=== PATIENT | female | born 1960 | race Caucasian/White ===

== ENCOUNTER 2019-12-04 12:57 | Outpatient (CLI) | payer BC, SELFPAY ==
--- NOTE | ~2019-12-04 | MM_ITS ---
EXAMINATION: MM diagnostic kaleb RT w teja HISTORY: Follow-up right breast calcifications TECHNIQUE: Additional 3-D tomosynthesis images of the right breast were performed and synthetic 2-D i mages were generated. CAD analysis was submitted and interpreted. COMPARISON: Comparison to multiple prior studies sequentially, with oldest reviewed study dated 07/24. FINDINGS: Breast composed of scattered areas of fibroglandular density. No significant change to the right breast compared with prior study. Benign-appearing right breast calcifications are not signific antly changed. Asymmetries are stable. IMPRESSION: 1. Stable right mammogram. Probable benign right breast calcifications. 2. Recommend 6 month follow-up diagnostic bilateral mammogram. BI-RADS category 3, probably benign findings. Reviewed, dictated and finalized at location A.
== END 2019-12-04 12:58 | disposition home or self-care (01) ==
PROVIDERS: PCP Internal Medicine; Visit Provider Obstetrics & Gynecology
DX: R92.2 Inconclusive mammogram (principal)
CPT/HCPCS: 77061; 77065; G0279

== ENCOUNTER 2020-02-01 14:18 | Outpatient (CLI) | payer BC, SELFPAY ==
--- NOTE | ~2020-02-01 | XR_ITS ---
XR sternoclavicular joint BI 02/01/2020 15:09 Indication: Sternoclavicular pain. Procedure: Three-view sternoclavicular joints Comparison: No prior studies for comparison. Findings: No fracture, subluxation or dislocation. There is anatomic alignment. No significant erosiv e changes seen. Soft tissues are unremarkable. Impression: 1: No significant bone or joint abnormality. Reviewed, dictated and finalized at location A. Impression: 1: No significant bone or joint abnormality.
--- NOTE | ~2020-02-01 | US_ITS ---
EXAMINATION: US thyroid DATE: 02/01/2020 15:06 INDICATION: Nontoxic single thyroid nodule. TECHNIQUE: Multiple ultrasound images of the thyroid were obtained. COMPARISON: Ultrasound 01/26/2019 FINDINGS: The right thyroid lobe measures 4.8 x 1.7 x 1.9 cm. The left thyroid lobe measures 3.5 x 1.5 x 1.7 c m. The thyroid demonstrates heterogeneous echogenicity. Vascularity is normal. In the right thyroid lobe, there is an 8 mm solid, hypoechoic, [id number]-[id number] nodule with smooth margin without echogenic foci (TI-RADS TR4). IMPRESSION: 1. Small thyroid nodule, likely not clinically significant. No follow-up is needed. 2. Heterogeneous thyroid, likely chronic lymphocytic (Tomas) thyroiditis. Reviewed, dictated and finalized at location B. IMPRESSION: 1. Small thyroid nodule, likely not clinically significant. No follow-up is nee ded. 2. Heterogeneous thyroid, likely chronic lymphocytic (Tomas) thyroiditis.
== END 2020-02-01 14:19 | disposition home or self-care (01) ==
LOC: ANHIMG 14:25
PROVIDERS: PCP Internal Medicine; Visit Provider Physician Assistant
DX: M25.519 Pain in unspecified shoulder (principal); E04.1 Nontoxic single thyroid nodule
CPT/HCPCS: 71130; 76536

== ENCOUNTER 2020-08-13 09:21 | Outpatient (CLI) | payer BC, SELFPAY ==
--- NOTE | ~2020-08-13 | MM_ITS ---
EXAMINATION: MM screening kaleb BI w teja HISTORY: Screening mammogram TECHNIQUE: Craniocaudal and mediolateral oblique 3-D tomosynthesis images were obtained and synthetic 2-D images were generated. CAD analysis was submitted and interpreted. COMPARISON: 12/04/2019 and 03/24/2019 diagnostic right digital mammogram examinations 03/20/2019, 03/08/2018 bilateral digital screening mammogram examinations BREAST PARENCHYMAL COMPOSITION: There are scattered areas of fibroglandular density. FINDINGS: There are scattered numerous bilateral benign calcifications. There is no evidence of suspi cious mass, calcification, or architectural distortion to suggest malignancy in either breast. There has been no suspicious interval change. IMPRESSION: 1. No mammographic evidence of malignancy. 2. Recommend routine screening mammography in one year. BI-RADS Category 2: Benign finding(s). 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
== END 2020-08-13 09:22 | disposition home or self-care (01) ==
PROVIDERS: PCP Physician Assistant; Visit Provider Obstetrics & Gynecology
DX: Z12.31 Encounter for screening mammogram for malignant neoplasm of breast (principal)
CPT/HCPCS: 77063; 77067

== ENCOUNTER 2021-09-10 16:14 | Outpatient (CLI) | payer BC, SELFPAY ==
--- NOTE | ~2021-09-10 | MM_ITS ---
EXAMINATION: MM screening kaleb BI w teja HISTORY: Screening TECHNIQUE: Craniocaudal and mediolateral oblique 3-D tomosynthesis images were obtained and synthetic 2-D images were generated. CAD analysis was submitted and interpreted. COMPARISON: Comparison to multiple prior studies sequentially, with oldest reviewed study dated 07/24. BREAST PARENCHYMAL COMPOSITION: There are scattered areas of fibroglandular density. FINDINGS: No significant change to benign-appearing bilateral breast calcifications. There is no evid ence of suspicious mass, calcification, or architectural distortion to suggest malignancy in either b reast. There has been no suspicious interval change. IMPRESSION: 1. No mammographic evidence of malignancy. 2. Recommend routine screening mammography in one year. BI-RADS Category 2: Benign finding(s). Reviewed, dictated and finalized at location A.
== END 2021-09-10 16:15 | disposition home or self-care (01) ==
LOC: ANHIMG 16:16
PROVIDERS: PCP Physician Assistant; Visit Provider Obstetrics & Gynecology
DX: Z12.31 Encounter for screening mammogram for malignant neoplasm of breast (principal)
CPT/HCPCS: 77063; 77067

== ENCOUNTER 2023-08-02 13:28 | Outpatient (CLI) | payer BC, SELFPAY ==
--- NOTE | ~2023-08-02 | MM_ITS ---
EXAMINATION: MM screening kaleb BI w teja HISTORY: Screening TECHNIQUE: Craniocaudal and mediolateral oblique 3-D tomosynthesis images were obtained and synthetic 2-D images were generated. CAD analysis was submitted and interpreted. COMPARISON: Comparison to multiple prior studies sequentially, with oldest reviewed study dated 07/2017. BREAST PARENCHYMAL COMPOSITION: There are scattered areas of fibroglandular density. FINDINGS: There is no evidence of suspicious mass, calcification, or architectural distortion to sugg est malignancy in either breast. There has been no suspicious interval change. IMPRESSION: 1. No mammographic evidence of malignancy. 2. Recommend routine screening mammography in one year. BI-RADS Category 1: Negative Reviewed, dictated and finalized at location A. 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
== END 2023-08-02 13:29 | disposition home or self-care (01) ==
LOC: ANHIMG 13:31
PROVIDERS: PCP Physician Assistant; Visit Provider Obstetrics & Gynecology
DX: Z12.31 Encounter for screening mammogram for malignant neoplasm of breast (principal)
CPT/HCPCS: 77063; 77067

== ENCOUNTER 2023-10-26 00:10 | Day surgery (SDC) | payer BC, SELFPAY ==
[2023-10-11 13:43] VITALS: BMI 57.6
[2023-10-26 12:05] VITALS: BP 157/64; PULSE 71; RESP 18; TEMP 36.6; O2SAT 97; BMI 56.0
[2023-10-26] MEDS: LACTATED RINGERS 1,000 ML 150 ML IV CONT (12:08)
[2023-10-26 12:21] LABS: Glucose Point of Care 256 mg/dl (65-105)
--- NOTE | 2023-10-26 12:46 | WPDANESEPPF ---
Anes - Initial Pre Proc Eval Procedure: Operation Date: 10/26/23 13:00 Proposed Procedures p Colonoscopy - Marcus Oropeza MD Date/Time: 10/26/23 12:46 Surgeon: Marcus Oropeza MD Pre Op Diagnosis: Other fecal abnormailities Patient Data Age: 63 Gender: F Height: 1.57 m Weight: 138.9 kg Last Vital Signs Temp 97.9 F 10/26/23 12:05 Pulse 71 10/26/23 12:05 Resp 18 10/26/23 12:05 BP 157/64 H 10/26/23 12:05 Pulse Ox 97 10/26/23 12:05 O2 Del Method Room Air 10/26/23 12:05 Allergies Allergy/AdvReac Type Severity Reaction Status Date / Time lisinopril Allergy Severe Anaphylaxis Verified 10/26/23 12:03 Penicillins Allergy Severe THROAT Verified 10/26/23 12:03 SWELLING, RASH levofloxacin Allergy Intermediate JOINT Verified 10/26/23 12:03 SWELLING adhesive Allergy Unknown Blister Verified 10/26/23 12:03 iodine Allergy Unknown Hives Verified 10/26/23 12:03 Contrast Media Allergy Severe Hives / Uncoded 10/26/23 12:03 Red Face, SOB,DIARRHEA Home Medications Medication Instructions Recorded Confirmed Type albuterol sulfate 90 mcg/actuation 2 puff inhalation QID PRN sob 10/11/23 10/26/23 History aerosol inhaler carvedilol 6.25 mg tablet 6.25 mg PO BID 10/11/23 10/26/23 History epinephrine 0.3 mg/0.3 mL 0.3 mg IM ONCE PRN Anaphylaxis 10/11/23 10/11/23 History injection, auto-injector estradiol 1 mg tablet 1 mg PO BID 10/11/23 10/26/23 History ferrous sulfate 325 mg PO DAILY anemia 10/11/23 10/26/23 History glimepiride 1 mg tablet 1 mg PO DAILY PRN bloodsugar 10/11/23 10/26/23 History levothyroxine 50 mcg tablet 500 mcg PO DAILY 10/11/23 10/26/23 History metformin 1,000 mg tablet 1,000 mg PO BID 10/11/23 10/26/23 History omeprazole 40 mg capsule,delayed 40 mg PO DAILY 10/11/23 10/26/23 History release Laboratory Tests 10/26/23 12:17 POC Capillary Glucose 256 H mg/dl (65-105) Patient hx anesthesia problems: none Family hx anesthesia problems: none Results Review: All pre-operative results and documents have been reviewed as part of the pre-operative evaluation. [facility] Past Medical History Medical History (Updated 10/26/23 @ 12:48 by Marcus Oropeza MD) Alternating constipation and diarrhea Colon polyp Social History Social History Smoking status: Never smoker Alcohol intake: never Substance use: never Substance use type: does not use Living arrangements: with family Spiritual care concerns: No Anes - Eval Final PreProcedure Day of Procedure 10/26/23 12:46 Patient weight: super morbidly obese Heart: regular rate and rhythm Lungs: clear to auscultation Airway: Mallampati scale class III Neurological: alert and oriented Last oral intake: >/= 8 hours ASA classification: IV Emergent: no Anesthetic plan: proceed Anesthesia type and monitoring: general GIVS and standard monitoring Results Review: All pre-operative results and documents have been reviewed as part of the pre-operative evaluation. Informed Consent: The patient's anesthetic plan and its attendant risks and benefits were discussed with the patient/family/POA. Questions were solicited and answers provided to the satisfaction of the patient/family/POA.
--- NOTE | 2023-10-26 12:47 | PM.HPGS ---
History of Present Illness History of Present Illness Consent: Risks, benefits, and alternatives have been discussed and questions answered. Patient agrees to proceed with procedure. Chief complaint: Other fecal abnormailities Narrative: Mona Carcamo is a 63 year old female with colon polyp in 2017, lately alternating constipation and diarrhea Review of Systems Review of Systems: All systems reviewed & are unremarkable except as noted in HPI and below PMFSH Past Medical History Medical History (Updated 10/26/23 @ 12:48 by Marcus Oropeza MD) Alternating constipation and diarrhea Colon polyp Social History Social History Smoking status: Never smoker Alcohol intake: never Substance use: never Substance use type: does not use Living arrangements: with family Spiritual care concerns: No Meds Home Medications and Allergies Home Medications Medication Instructions Recorded Confirmed Type albuterol sulfate 90 mcg/actuation 2 puff inhalation QID PRN sob 10/11/23 10/26/23 History aerosol inhaler carvedilol 6.25 mg tablet 6.25 mg PO BID 10/11/23 10/26/23 History epinephrine 0.3 mg/0.3 mL 0.3 mg IM ONCE PRN Anaphylaxis 10/11/23 10/11/23 History injection, auto-injector estradiol 1 mg tablet 1 mg PO BID 10/11/23 10/26/23 History ferrous sulfate 325 mg PO DAILY anemia 10/11/23 10/26/23 History glimepiride 1 mg tablet 1 mg PO DAILY PRN bloodsugar 10/11/23 10/26/23 History levothyroxine 50 mcg tablet 500 mcg PO DAILY 10/11/23 10/26/23 History metformin 1,000 mg tablet 1,000 mg PO BID 10/11/23 10/26/23 History omeprazole 40 mg capsule,delayed 40 mg PO DAILY 10/11/23 10/26/23 History release Allergies Allergy/AdvReac Type Severity Reaction Status Date / Time lisinopril Allergy Severe Anaphylaxis Verified 10/26/23 12:03 Penicillins Allergy Severe THROAT Verified 10/26/23 12:03 SWELLING, RASH levofloxacin Allergy Intermediate JOINT Verified 10/26/23 12:03 SWELLING adhesive Allergy Unknown Blister Verified 10/26/23 12:03 iodine Allergy Unknown Hives Verified 10/26/23 12:03 Contrast Media Allergy Severe Hives / Uncoded 10/26/23 12:03 Red Face, SOB,DIARRHEA Vital Signs Vital Signs - 24 hr 10/26/23 12:05 Temperature 97.9 F Pulse Rate 71 Respiratory Rate 18 Blood Pressure 157/64 H Pulse Oximetry 97 Oxygen Delivery Room Air Exam Const: General: comfortable and no acute distress Nutritional Appearance: obese HENMT: Face/Nose/Sinus: Normal nares present Eyes: General: appearance normal, both eyes and all related structures Neck: Neck: no JVD Resp: Auscultation: clear to auscultation bilaterally Cardio: Rate: regular rate Rhythm: regular rhythm GI: Inspection: non-distended GI Palp: Yes Soft to palpation Skin: General skin exam: normal color Neuro: General: gait normal Speech: normal speech Extrem: General: normal to inspection Psych: Mental Status: mental status grossly normal Assessment and Plan Assessment and plan (1) Alternating constipation and diarrhea: Code(s): R19.8 - Other specified symptoms and signs involving the digestive system and abdomen Status: Acute (2) Colon polyp: Code(s): K63.5 - Polyp of colon Status: Acute Assessment and Plan: colonoscopy
[2023-10-26 13:15] VITALS: BP 110/39; PULSE 72; RESP 20; O2SAT 95
[2023-10-26 13:25] VITALS: BP 122/67; PULSE 70; RESP 28; O2SAT 95
[2023-10-26 13:35] VITALS: BP 134/63; PULSE 66; RESP 22; O2SAT 95
== END 2023-10-26 13:45 | disposition home or self-care (01) ==
PROVIDERS: PCP Physician Assistant; Visit Provider Internal Medicine Gastroenterology
PROC: 0DJD8ZZ Inspection of Lower Intestinal Tract, Via Natural or Artificial Opening Endoscopic (ICD-10-PCS; CPT 45378; principal; 2023-10-26 13:00)
DX: D12.3 Benign neoplasm of transverse colon (principal); D12.2 Benign neoplasm of ascending colon; K63.5 Polyp of colon; K57.30 Diverticulosis of large intestine without perforation or abscess without bleeding; K64.8 Other hemorrhoids; Z79.51 Long term (current) use of inhaled steroids; Z79.84 Long term (current) use of oral hypoglycemic drugs; E66.01 Morbid (severe) obesity due to excess calories; Z68.43 Body mass index [BMI] 50.0-59.9, adult
CPT/HCPCS: 45385; 45380; 82948; 88305; J2001; J2704; J7120

== ENCOUNTER 2024-08-30 15:27 | Outpatient (CLI) | payer BC, SELFPAY ==
--- NOTE | ~2024-08-30 | MM_ITS ---
EXAMINATION: MM screening kaleb BI w teja HISTORY: Screening TECHNIQUE: Craniocaudal and mediolateral oblique 3-D tomosynthesis images were obtained and synthetic 2-D images were generated. CAD analysis was submitted and interpreted. COMPARISON: 08/02/2023 and dating back to 12/04/2019 BREAST PARENCHYMAL COMPOSITION: There are scattered areas of fibroglandular density. FINDINGS: Extensive bilateral bulky and punctate calcifications, unchanged from prior. Interval development of two tightly clustered groups of microcalcifications, located within the upper outer and upper slightly inner right breast, not present on the previous studies for which magnifica tion views are recommended. Otherwise stable parenchymal pattern without architectural distortion, discrete masses or significant asymmetry. IMPRESSION: Interval development of two tightly clustered groups of microcalcifications, located within the upper outer and upper slightly inner right breast, not present on the previous studies for which magnifica tion views are recommended. BI-RADS Category 0: Incomplete: Needs additional imaging evaluation. Reviewed, dictated and finalized at location A. IMPRESSION: Interval development of two tightly clustered groups of microcalcifications, lo cated within the upper outer and upper slightly inner right breast, not present on the previous studies for which magnification views are recommended. BI-RADS Category 0: Incomplete: Needs additional imaging evaluation.
--- OUTSIDE RECORDS SUMMARY | 2024-08-30 16:45 | XMS_ITS | CONTINUITY OF CARE DOCUMENT ---
Author Name fany, fany Address Unknown Organization [facility] Address [address] [place] [address] Phone [phone] Care Team Providers Care Event Marketing Representative Name Role Phone Chico Mitchell MD Unavailable [phone] KINA MORA, BAY Walls Unavailable BAY CASTANON MD Unavailable PROBLEMS Condition Status Date Provider Notes OBESITY active Elena Stahlschmidt CHEST PAIN-03/13 NUC NEG completed - Bandar Lewis Obstructive sleep apnea active Chico Mitchell MD CAD-06/15 CATH NO CAD completed - Chico Orellana HTN active Bandar Lewis PHYSICAL EXAMINATION completed - Chico Mitchell MD PALPITATIONS-06/16 HOLTER SR-SV ECTOPICS HR 45-105 active ? Davon Clark RN LEG PAIN-04/17 MALIA DOP -02/15 MALIA DOP NEG completed - Chico Mitchell MD DIABETES MELLITUS active Chico Mitchell MD ARM PAIN completed - Chico Mitchell MD AMI SUBENDOCARDIAL-03/19 NUC NL EF 71 completed - Chico Mitchell MD FAMILY HISTORY OF CAD active ? Bandar maloney Family History of CVA active ? Bandar maloney Thyroid nodule active Chico Mitchell MD COVID-19 in 05/2020 active Bandar Lundbe rg not hospitalized - SOB/cough/sinus issues AV block, second degree active Bandar Lewis Shortness of breath active Bandar helms ENCOUNTERS Date Type Provider Location Encounter Diag nosis - In-person encounter Office Visit Chico Mitchell MD [facility] Office CHEST PAIN-03/13 NUC NEGHTNCOVID-19 in 05/2020AV block, second degreeShortness of breath - In-person encounter Office Visit Chico Mitchell MD [facility] Office - In-person encounter Office Visit Chico Mitchell MD [facility] Thyroid nodule - In-person encounter Office Visit Chico Mitchell MD [place] [facility] - In-person encounter Office Visit Chico Mitchell MD [place] [facility] Obstructive sleep apneaCAD-06/15 CATH NO CADLEG PAIN-04/17 MALIA DOP -02/15 MALIA DOP NEGARM PAINAMI SUBENDOCARDIAL-03/19 NUC NL EF 71FAMILY HISTORY OF CADFamily History of CVA - In-person encounter Office Visit Chico Mitchell MD [place] [facility] PHYSICAL EXAMINATION - In-person encounter Office Visit Chico Mitchell MD [place] [facility] - In-person encounter Office Visit Chico Mitchell MD [place] [facility] - In-person encounter Office Visit Chico Mitchell MD [place] [facility] HTN - In-person encounter Office Visit Chico Mitchell MD [place] [facility] - In-person encounter Office Visit Chico Mitchell MD [place] [facility] - In-person encounter Office Visit Chico Mitchell MD [place] [facility] - In-person encounter Office Visit Chico Mitchell MD [place] [facility] DIABETES MELLITUS - In-person encounter Office Visit Chico Mitchell MD [place] [facility] - In-person encounter Office Visit Chico Mitchell MD [place] [facility] - In-person encounter Office Visit Chico Mitchell MD [facility] Office PALPITATIONS-06/16 HOLTER SR-SV ECTOPICS HR 45-105 - In-person encounter Office Visit Chico Mitchell MD [place] [facility] Obstructive sleep apneaHTN - In-person encounter Office Visit Chico Mitchell MD [facility] VITAL SIGNS Date Observation Value Provider Body Mass Index (Ratio) 56.15 kg/m2 Erickson Lewis blood pressure, diastolic 60 mm[Hg] Rh onda Brandi blood pressure, systolic 138 mm[Hg] Rho ndjanine Paz oxygen saturation, oximetry 98 % Mavis Paz pulse rate 83 /min Mavis Paz blood pressure, resting Yes Rhon jimenez Paz weight E&M 317 [lb_av] Mavis Paz respiratory rate E&M 18 /min Mavis Paz blood pressure, cuff size regular Rh onda Brandi height E&M 63 [in_i] Mavis Paz Body Mass Index (Ratio) 56.15 kg/m2 Ptao tori Roberson blood pressure, diastolic 70 mm[Hg] Fe mary Phil blood pressure, systolic 138 mm[Hg] Fel icia Phil oxygen saturation, oximetry 95 % Jenny Phil respiratory rate E&M 18 /min Jenny Villarreal pulse rate 76 /min Jenny Phil weight E&M 317 [lb_av] Jenny Phil height E&M 63 [in_i] Jenny Phil blood pressure, diastolic, left arm 70 mm [Hg] Bandar Lewis blood pressure, systolic, left arm 140 mm [Hg] Bandar [facility] blood pressure, diastolic, right arm 66 m m[Hg] Bandar [facility] blood pressure, systolic, right arm 136 m m[Hg] Bandar [facility] Body Mass Index (Ratio) 55.09 kg/m2 Erickson barrera Debbie blood pressure, cuff size regular Cy nigel Adkins blood pressure, diastolic 70 mm[Hg] Faustino Adkins blood pressure, systolic 140 mm[Hg] Shelly Adkins oxygen saturation, oximetry 95 % Delia Adkins respiratory rate E&M 16 /min Delia Adkins pulse rate 86 /min Delia smith weight E&M 311 [lb_av] Delia smith height E&M 63 [in_i] Delia smith Body Mass Index (Ratio) 54.91 kg/m2 Erickson Greenberg weight E&M 310 [lb_av] Delia smith blood pressure, cuff size regular Faustino Adkins blood pressure, diastolic 64 mm[Hg] Faustino Adkins blood pressure, systolic 160 mm[Hg] Shelly Adkins oxygen saturation, oximetry 96 % Delia Adkins respiratory rate E&M 16 /min Delia Adkins pulse rate 70 /min Delia smith height E&M 63 [in_i] Delia smith Body Mass Index (Ratio) 57.74 kg/m2 Erickson Lewis blood pressure, resting Yes Chico Mitchell MD blood pressure, cuff size large Ke rri Travis blood pressure, diastolic 72 mm[Hg] Ji rri Travis blood pressure, systolic 152 mm[Hg] Trae Robles oxygen saturation, oximetry 95 % Felicia Robles respiratory rate E&M 18 /min Felicia Wray carlito pulse rate 74 /min Felicia Montielphoenixatul weier weight E&M 326 [lb_av] Felicia Montielcarleyallen er height E&M 63 [in_i] Felicia Nicholascarolinatul weier blood pressure, diastolic 86 mm[Hg] Zora Steele blood pressure, systolic 182 mm[Hg] Corinne Cortez Steele pulse rate 68 /min Ronel Lopez yuribruce oxygen saturation, oximetry 95 % Ronel Steele respiratory rate E&M 18 /min Valerie verdugo Steele Body Mass Index (Ratio) 56.18 kg/m2 Tegan Steele weight E&M 317.2 [lb_av] Ronel maldonadobruce Body Mass Index (Ratio) 54.91 kg/m2 [facility] blood pressure, diastolic, left arm 72 mm [Hg] Aneatris Brown blood pressure, systolic, left arm 146 mm [Hg] Aneatris Brown blood pressure, diastolic, right arm 84 m m[Hg] Aneatris Brown blood pressure, systolic, right arm 186 m m[Hg] Aneatris Brown blood pressure, diastolic 84 mm[Hg] [facility] blood [facility], systolic 186 mm[Hg] [facility]ne [facility] pulse rate 69 /min Aneatris Brown oxygen saturation, oximetry 96 % Aneatris Brown respiratory rate E&M 17 /min Aneatri s Brown weight E&M 310 [lb_av] Aneatris Brown Body Mass Index (Ratio) 56.00 kg/m2 Annalisa Daniel blood pressure, diastolic, left arm 76 mm [Hg] Gricelda Daniel blood pressure, systolic, left arm 134 mm [Hg] Gricelda Daniel blood pressure, diastolic, right arm 83 m m[Hg] Gricelda Daniel blood pressure, systolic, right arm 145 m m[Hg] Gricelda Daniel blood pressure, diastolic 76 mm[Hg] Me lauryn Daniel blood pressure, systolic 134 mm[Hg] Eula Daniel pulse rate 68 /min Gricelda Daniel oxygen saturation, oximetry 97 % Gricelda Daniel respiratory rate E&M 14 /min Gricelda Daniel weight E&M 315 [lb_av] Gricelda Daniel Body Mass Index (Ratio) 55.29 kg/m2 Chacko i Travis blood pressure, diastolic 73 mm[Hg] Ji diazi Travis blood pressure, systolic 136 mm[Hg] Trae Robles pulse rate 88 /min Felicia lucio oxygen saturation, oximetry 97 % Felicia Robles respiratory rate E&M 15 /min Felicia esteban weight E&M 311 [lb_av] Felicia lucio blood pressure, diastolic, left arm 84 mm [Hg] Davon Clark RN blood pressure, systolic, left arm 171 mm [Hg] Davon Clark RN blood pressure, diastolic, right arm 79 m m[Hg] Davon Clark RN blood pressure, systolic, right arm 155 m m[Hg] Davon Clark RN blood pressure, diastolic 84 mm[Hg] Cholo Clark RN blood pressure, systolic 171 mm[Hg] Davon Clark RN pulse rate 75 /min Davon Clark RN oxygen saturation, oximetry 98 % Davon Clark RN respiratory rate E&M 16 /min Davon slater RN Body Mass Index (Ratio) 54.13 kg/m2 Davon Clark RN weight E&M 304.5 [lb_av] Davon Weekss RN blood pressure, diastolic, left arm 75 mm [Hg] Davon Clark RN blood pressure, systolic, left arm 150 mm [Hg] Davon Clark RN blood pressure, diastolic, right arm 79 m m[Hg] Davon Clark RN blood pressure, systolic, right arm 137 m m[Hg] Davon Clark RN blood pressure, diastolic 75 mm[Hg] Cholo Clark RN blood pressure, systolic 150 mm[Hg] Davon Clark RN pulse rate 81 /min Davon Clark RN oxygen saturation, oximetry 96 % Davon Clark RN respiratory rate E&M 17 /min aDvon slater RN Body Mass Index (Ratio) 54.40 kg/m2 Davon Amber REN weight E&M 306 [lb_av] Davon Clark RN height E&M 63 [in_i] Davon Clark RN blood pressure, diastolic, left arm 75 mm [Hg] Davon Clark RN blood pressure, systolic, left arm 122 mm [Hg] Davon Clark RN blood pressure, diastolic, right arm 74 m m[Hg] Davon Clark RN blood pressure, systolic, right arm 130 m m[Hg] Davon Clark RN blood pressure, diastolic 75 mm[Hg] hColo Clark RN blood pressure, systolic 122 mm[Hg] Davon Clark RN pulse rate 63 /min Davon Clark RN oxygen saturation, oximetry 96 % Davon Clark RN respiratory rate E&M 18 /min Davon salmons RN weight E&M 296 [lb_av] Davon Clark RN blood pressure, diastolic, left arm 85 mm [Hg] Davon Clark RN blood pressure, systolic, left arm 141 mm [Hg] Davon Clark RN blood pressure, diastolic, right arm 77 m m[Hg] Davon Clark RN blood pressure, systolic, right arm 149 m m[Hg] Davon Weekss RN blood pressure, diastolic 77 mm[Hg] Cholo Clark RN blood pressure, systolic 149 mm[Hg] Davon Weekss RN pulse rate 67 /min Davon Weekss RN oxygen saturation, oximetry 96 % Davon Weekss RN respiratory rate E&M 16 /min Davon slater RN weight E&M 303 [lb_av] Davon Weekss RN blood pressure, diastolic, left arm 74 mm [Hg] Chelsie Blunt blood pressure, systolic, left arm 120 mm [Hg] Chelsie Blunt blood pressure, diastolic, right arm 74 m m[Hg] Chelsie Blunt blood pressure, systolic, right arm 124 m m[Hg] Chelsie Blunt blood pressure, diastolic 74 mm[Hg] He ather Blunt blood pressure, systolic 120 mm[Hg] Hea ther Blunt pulse rate 65 /min Chelsie Blunt oxygen saturation, oximetry 97 % Chelsie Blunt respiratory rate E&M 18 /min Chelsie Blunt weight E&M 305 [lb_av] Chelsie Blunt blood pressure, diastolic, left arm 80 mm [Hg] Abraham Manacop blood pressure, systolic, left arm 138 mm [Hg] Abraham [place] blood pressure, diastolic, right arm 84 m m[Hg] Abraham [place] blood pressure, systolic, right arm 136 m m[Hg] Abraham [place] blood pressure, diastolic 84 mm[Hg] Becky seph [place] blood pressure, systolic 136 mm[Hg] Rey swanson [place] pulse rate 72 /min Abraham [place] oxygen saturation, oximetry 96 % Abraham [place] respiratory rate E&M 16 /min Abraham [place] weight E&M 312 [lb_av] Abraham Man[place]op blood pressure, diastolic, left arm 82 mm [Hg] Sandra David blood pressure, systolic, left arm 150 mm [Hg] Sandra David blood pressure, diastolic, right arm 83 m m[Hg] Sandra David blood pressure, systolic, right arm 143 m m[Hg] Sandra David blood pressure, diastolic 82 mm[Hg] Jimenez danielle David blood pressure, systolic 150 mm[Hg] Robe martines David pulse rate 69 /min Sandra David oxygen saturation, oximetry 96 % Sandra David respiratory rate E&M 18 /min Nate Hernandez weight E&M 312 [lb_av] Sandra Hernandez blood pressure, diastolic 80 mm[Hg] Cholo Clark RN blood pressure, systolic 156 mm[Hg] Davon Clark RN pulse rate 61 /min Davon Clark RN oxygen saturation, oximetry 98 % Davon Clark RN respiratory rate E&M 18 /min Davon slater RN weight E&M 312 [lb_av] Davon Clark RN blood pressure, diastolic 83 mm[Hg] Fe mary Raleigh blood pressure, systolic 153 mm[Hg] Fel icia Raleigh pulse rate 68 /min Jenny Mary oxygen saturation, oximetry 97 % Jenny Raleigh respiratory rate E&M 16 /min Jenny Mary weight E&M 321 [lb_av] Jenny Mary ALLERGIES Allergy Name Onset Date Reaction Criticality Status LEVAQUIN Low Criticality active RESULTS Date Observation Value Provider Reference Range Interpretation Location thyroid stimulating hormone, serum 5.46 u[IU]/mL Bandar Debbie thyroxine, serum, free 1.2 ng/dL Bandar Debbie hemoglobin A1C, blood, as % of total hemoglobin 6.0 % Bandar Lewis platelet count 248 10*3/uL [facility] red blood cell distribution width 12.4 % [facility] mean corpuscular hemoglobin concentration, RBC 35.4 g/dL [facility] mean corpuscular hemoglobin, RBC 30.9 pg [facility] mean corpuscular volume, RBC 87.4 fL [facility] hematocrit, blood 42.4 % [facility] hemoglobin, blood 15.0 g/dL [facility] erythrocyte (RBC) count 4.85 10*6/mm3 [facility] leukocyte count, blood 7.5 10*3/mm3 [facility] protein, total, serum 6.5 g/dL [facility] albumin, serum 4.0 g/dL [facility] bilirubin, serum, total 0.9 mg/dL [facility] alkaline phosphatase, serum 37 1/L [facility] alanine aminotransferase (SGPT), serum 30 1/L [facility] aspartate aminotransferase (SGOT), serum 40 1/L [facility] calcium, serum 9.2 mg/dL [facility] blood glucose, random 125 mg/dL [facility] creatinine, serum 0.70 mg/dL [facility] urea nitrogen, blood 12 mg/dL [facility] carbon dioxide, serum, total 24 mmol/L [facility] chloride, serum 103 mmol/L [facility] potassium, serum 3.8 mmol/L [facility] sodium, serum 137 mmol/L [facility] triglyceride, serum, fasting 149 mg/dL [facility] HDL cholesterol, serum 50 mg/dL [facility] LDL cholesterol, serum 91 mg/dL [facility] cholesterol, serum 166 mg/dL [facility] LDL cholesterol, serum 88 mg/dL Chico Mitchell MD globulins, serum, total 2.8 g/dL [facility] Estimated Glomerular Filtration Rate (calc) 79 mL/min/{1 .73_m2} [facility] protein, total, serum 6.4 g/dL albumin, serum 3.6 g/dL bilirubin, serum, total 0.73 mg/dL [facility] alkaline phosphatase, serum 66 1/L alanine aminotransferase (SGPT), serum 36 1/L aspartate aminotransferase (SGOT), serum 33 1/L [facility] calcium, serum 8.9 mg/dL [facility] blood glucose, fasting 309 mg/dL creatinine, serum 0.77 mg/dL [facility] urea nitrogen, blood 13 mg/dL [facility] carbon dioxide, serum, total 22 mmol/L chloride, serum 102 mmol/L potassium, serum 4.4 mmol/L sodium, serum 135 mmol/L [facility] amylase, serum 117 1/L [facility] lipase, serum 33 1/L [facility] PTT patient 26.6 s prothrombin time (patient) 12.4 s [facility] international normalized ratio (INR) 0.90 [facility] anion gap, serum 11 troponin I 0.01 ng/mL [facility] calcium, serum 8.9 mg/dL [facility] blood glucose, fasting 205 mg/dL [facility] creatinine, serum 0.67 mg/dL [facility] urea nitrogen, blood 10 mg/dL carbon dioxide, serum, total 25 mmol/L chloride, serum 102 mmol/L Denetr/ 29 potassium, serum 4.1 mmol/L [facility] sodium, serum 134 mmol/L [facility] hemoglobin A1C, blood, as % of total hemoglobin 9.8 % [facility] platelet count 192 10*3/uL [facility] red blood cell distribution width 12.7 % [facility] mean corpuscular hemoglobin concentration, RBC 35.4 g/dL [facility] mean corpuscular hemoglobin, RBC 30.4 pg [facility] mean corpuscular volume, RBC 86.0 fL [facility] hematocrit, blood 43.5 % [facility] hemoglobin, blood 15.4 g/dL [facility] erythrocyte (RBC) count 5.06 10*6/mm3 [facility] leukocyte count, blood 6.7 10*3/mm3 [facility] thyroid stimulating hormone, serum 2.49 u[IU]/mL [facility] Normal free thyroxine index 3.1 [facility] 1.4-3.8 Normal thyroxine, serum, total 12.1 ug/dL [facility] 4.5-12.5 Normal triiodothyronine resin uptake 26 % [facility] 22-35 Normal platelet count 246 10*3/uL [facility] hematocrit, blood 44.2 % [facility] hemoglobin, blood 15.5 g/dL [facility] erythrocyte (RBC) count 5.14 10*6/mm3 [facility] leukocyte count, blood 9.6 10*3/mm3 [facility] platelet count 246 10*3/uL [facility] hematocrit, blood 44.2 % [facility] hemoglobin, blood 15.5 g/dL [facility] erythrocyte (RBC) count 5.14 10*6/mm3 [facility] leukocyte count, blood 9.6 10*3/mm3 [facility] GELA blood glucose, fasting 192 mg/dL [facility] creatinine, serum 0.97 mg/dL [facility] urea nitrogen, blood 14 mg/dL [facility] carbon dioxide, serum, total 23 mmol/L [facility] chloride, serum 100 mmol/L [facility] potassium, serum 4.4 mmol/L [facility] sodium, serum 134 mmol/L [facility] triglyceride, serum, fasting 81 mg/dL Tegan Brain REN HDL cholesterol, serum 67 mg/dL [facility] LDL cholesterol, serum 100 mg/dL [facility] cholesterol, serum 183 mg/dL [facility] GELA coagulation managed by Tegan De La Paz RN international normalized ratio (INR) 1.0 Tegan Brain REN prothrombin time (patient) 10.0 s Tegan De La Paz RN HISTORY OF MEDICATION USE Medication Status Instructions Dates Provider Indications Com ments LEVOTHYROXINE SODIUM 50 MCG ORAL TABLET active 1 tablet by mouth daily Jenny Villarreal METOPROLOL TARTRATE 25 MG ORAL TABLET active One tablet in the evening Chico Mitchell MD MECLIZINE HCL 25 MG ORAL TABLET active take 1 tab once a day as needed Delia Adkins ESTRADIOL 1 MG ORAL TABLET active Take twice a day Delia Adkins LISINOPRIL 5MG TABLETS active TAKE 1 TABLET BY MOUTH DAILY Amalia Vieyra Dose increased from 2.5mg daily to 5mg daily DICLOFENAC SODIUM 50 MG ORAL TABLET DELAYED RELEASE completed take one pill twice a day - Gricelda Daniel ALEVE 220 MG ORAL TABLET completed as needed - Davon Clark RN SULFAMETHOXAZOLE -TRIMETHOPRIM 800-160 MG ORAL TABLET completed one tab daily - Davon Clark RN GLIMEPIRIDE 1 MG ORAL TABLET active 1/2 tab twice daily for bs greater than 110 Davon Clark RN METFORMIN HCL 500 MG ORAL TABLET active 2 tabs twice daily Davon Clark RN ASPIRIN 81 MG ORAL TABLET completed 1 tablet by mouth daily - Chelsie Smith ESTRADIOL 1 MG ORAL TABLET completed 1 tablet by mouth twice daily - Felicia Robles PROTONIX 40 MG ORAL TABLET DELAYED RELEASE completed ONE TAB. DAILY - Davon Clark RN XANAX 0.25 MG ORAL TABLET completed 1 tablet by mouth as needed - Chelsie Smith NASONEX 50 MCG/ACT NASAL SUSPENSION completed as needed - Chelsie Smith FEXOFENADINE HCL 180 MG ORAL TABLET completed - Jenny Hernandez SOCIAL HISTORY Date Observation Value Provider physical exercise, f requency, days per week no Bandar Lewis caffeine use, averag e drinks per day 0 /d Bandar Lewis passive cigarette sm rohan exposure no Bandar Lewis smoking status Never smoker Bandar Chris tse social history reviewed E&M revi ewed - no changes required Bandar Lewis social history E&M Marital Statu s: Shavon gann with family/friends E thnicity: Smoking History: Marcelino quiñones has never smoked. Bandar Lewis social history E&M Marital Statu s: Shavon gann with family/friends E thnicity: Smoking History: Marcelino quiñones has never smoked. Chico Mitchell MD social history reviewed E&M revi ewed - no changes required Chico Mitchell MD number of grandchildren Chico Mitchell MD physical exercise, f requency, days per week no Jenny Villarreal caffeine use, averag e drinks per day 0 /d Jenny Villarreal passive cigarette sm rohan exposure no Jenny Villarreal smoking status Never smoker Jenny Villarreal social history reviewed E&M revi ewed - no changes required Chico Mitchell MD physical exercise, f requency, days per week no Delia Adkins caffeine use, averag e drinks per day 0 /d Delia Adkins passive cigarette sm rohan exposure no Delia Jed smoking status Never smoker Delia Myers evelyn social history reviewed E&M chinmay ewed - no changes required Chico Mitchell MD physical exercise, f requency, days per week no Chico Mitchell MD alcohol use, average drinks per day none Chico Mitchell MD alcohol use no Chico Mitchell MD caffeine use, averag e drinks per day 0 /d Chico Mitchell MD drug use no Chico Mitchell MD passive cigarette sm rohan exposure no Chico Mitchell MD smoking status Never smoker Chico Orellana caffeine use, averag e drinks per day 0 /d Bandar Lewis smoking status Never smoker Bandar Chris tse social history E&M Marital Statu s: L sanjuanita with family/friends E thnicity: Smoking History: Marcelino quiñones has never smoked. Chico Mitchell MD social history reviewed E&M chinmay ewed - no changes required Chico Mitchell MD physical exercise, f requency, days per week no Felicia Robles alcohol use, average drinks per day none Felicia Robles alcohol use no Felicia Mast ldsana drug use no Felicia lucio passive cigarette sm rohan exposure no Felicia Robles social history E&M Marital Statu s: L sanjuanita with family/friends E thnicity: Smoking History: P ishmael has never smoked. Chico Mitchell MD social history reviewed E&M chinmay ewed - no changes required Chico Mitchell MD physical exercise, f requency, days per week no Ronel Steele alcohol use, average drinks per day none Ronel Steele alcohol use no Ronel torres caffeine use, averag e drinks per day no Ronel Steele drug use no Ronel torres passive cigarette sm rohan exposure no Ronel Steele smoking status Never smoker Ronel Fagan physical exercise, f requency, days per week no Chico Mitchell MD alcohol use, average drinks per day none Chico Mitchell MD caffeine use, averag e drinks per day no Chico Mitchell MD drug use no Chico Mitchell MD passive cigarette sm rohan exposure no Chico Mitchell MD smoking status Never smoker Chico Orellana social history reviewed E&M chinmay hernandez - no changes required Chico Mitchell MD social history reviewed E&M reviewed Davon Clark RN social history reviewed E&M reviewed Davon Clark RN social history reviewed E&M reviewed Davon Clark RN drug use no Davon Clark RN passive cigarette sm rohan exposure no Davon Clark RN social history reviewed E&M reviewed Davon Clark RN smoking status never smoker Davon Clark RN social history reviewed E&M reviewed Davon Clark RN social history reviewed E&M reviewed Davon Clark RN social history reviewed E&M reviewed Chelsie Smith social history reviewed E&M reviewed Davon Clark RN social history reviewed E&M reviewed Beto Hammer social history reviewed E&M reviewed Davon Clark RN social history E&M Marital Statu s: L sanjuanita with family/friends E thnicity: Chico Mitchell MD physical exercise, f requency, days per week no [employer] caffeine use, averag e drinks per day no [employer] alcohol use, average drinks per day none [facility] smoking status Non-smoker [facility] MENTAL STATUS Date Observation Value Provider assessment of judgme nt and insight E&M Alert and oriented to time, place and person. Mood and affect are normal. Davon Clark RN assessment of judgme nt and insight E&M Alert and oriented to time, place and person. Mood and affect are normal. Davon Weekswilda REN assessment of judgme nt and insight E&M Alert and oriented to time, place and person. Mood and affect are normal. Davon Clark RN assessment of judgme nt and insight E&M Alert and oriented to time, place and person. Mood and affect are normal. Davon Clark RN assessment of judgme nt and insight E&M Alert and oriented to time, place and person. Mood and affect are normal. Davon Clark RN assessment of judgme nt and insight E&M Alert and oriented to time, place and person. Mood and affect are normal. Davon Clark RN assessment of judgme nt and insight E&M Alert and oriented to time, place and person. Mood and affect are normal. Chelsie Blunt assessment of judgme nt and insight E&M Alert and oriented to time, place and person. Mood and affect are normal. Davon Clark RN assessment of judgme nt and insight E&M Alert and oriented to time, place and person. Mood and affect are normal. Chico Mitchell MD assessment of judgme nt and insight E&M Alert and oriented to time, place and person. Mood and affect are normal. Davon Clark RN assessment of judgme nt and insight E&M Alert and oriented to time, place and person. Mood and affect are normal. Chico Mitchell MD FAMILY HISTORY Family Member Condition Mother Family History of Ot her Medical Problems Father Family History of Ot her Medical Problems Father Family History of Di abetes: Father Family History of Hy pertension: Father Family History of CV A or Stroke: Mother Family History of Di abetes: Mother Family History of Hy pertension: Full Sister Family History of Di abetes: Full Brother Family History of Di abetes: Mother Family History of Co ronary Artery Disease: Father Family History of Co ronary Artery Disease: Father Family History of Kathryn ng Cancer: INSURANCE PROVIDERS Payer name Policy type / Coverage type Félix red democrat ID BLUE PREFERRED HMO [facility] [id number] ADVANCE DIRECTIVES Name Date DISCUSSED - NO DECISION MADE TREATMENT PLAN Date Name Performer Cardiology:The patie nt is using CPAP/BiPAP on a regular basis. The patient has been benefiting from therapy and should continue use. [facility] Cardiology:Her updat ed medication list for this problem includes: Lisinopril 5mg Tablets (Lisinopril) ..... Take 1 tablet by mouth daily Metformin Hcl 500 Mg Oral Tablet (Metformin hcl) ..... 2 tabs twice daily Glimepiride 1 Mg Oral Tablet (Glimepiride) ..... 1/2 tab twice daily for bs greater than 110 [facility] Cardiology:BP today: 138/60 P rior BP: 138/70 (08/15/2019) Her updated medication list for this problem includes: Metoprolol Tartrate 25 Mg Oral Tablet (Metoprolol tartrate) ..... One tablet in the evening Lisinopril 5mg Tablets (Lisinopril) ..... Take 1 tablet by mouth daily [facility] Cardiology:Pt had CO VID-19 in May. She did not need to be hospitalized but had SOB/cough/sinus issues. Since then, she has had more frequent palpitations however she also continues to be short of breath. She has also noticed hair loss since renuka COVID-19. EKG today does show 2nd degree AVB however she denies any dizziness. We will obtain a f/u echo. [facility] Cardiology:EKG today does show 2nd degree AVB however she denies any dizziness. We will obtain a f/u echo. [facility] Cardiology:Pt had CO VID-19 in May. She did not need to be hospitalized but had SOB/cough/sinus issues. Since then, she has had more frequent palpitations however she also continues to be short of breath. We will obtain a f/u echo. [facility] Cardiology:Pt had CO VID-19 in May. She did not need to be hospitalized but had SOB/cough/sinus issues. Since then, she has had more frequent palpitations however she also continues to be short of breath. EKG today does show 2nd degree AVB however she denies any dizziness. We will obtain a f/u echo. [facility]: H er updated medication list for this problem includes: Lisinopril 5mg Tablets (Lisinopril) ..... Take 1 tablet by mouth daily Metformin Hcl 500 Mg Oral Tablet (Metformin hcl) ..... 2 tabs twice daily Glimepiride 1 Mg Oral Tablet (Glimepiride) ..... 1/2 tab twice daily for bs greater than 110 [facility] Cardiology: E ncouraged weight loss. [facility] Cardiology:Still did not receive BiPAP. Will try to assist. Chico Mitchell MD Cardiology:No recurrence. Her ec ho was normal. Chico Mitchell MD Cardiology:Feels bet ter on levothyroxine. Further mangaemen as per PCP. Chico Mitchell MD Cardiology:Improved significantl y. Chico Mitchell MD Cardiology follow up :Her updated medication list for this problem includes: Lisinopril 5 Mg Oral Tablet (Lisinopril) ..... One tab. daily Metformin Hcl 500 Mg Oral Tablet (Metformin hcl) ..... 2 tabs twice daily Glimepiride 1 Mg Oral Tablet (Glimepiride) ..... 1/2 tab twice daily for bs greater than 110 [facility] follow up :BP today: 140/70 P rior BP: 160/64 (2018) Her updated medication list for this problem includes: Metoprolol Tartrate 25 Mg Oral Tablet (Metoprolol tartrate) ..... One tablet in the evening Lisinopril 5 Mg Oral Tablet (Lisinopril) ..... One tab. daily [facility] follow up :She needs a new BiPAP machine (humidifier not functioning). [facility] follow up :Pt complains of more palpitations. Mainly at night. Will obtain f/u echo and try an event monitor. [facility] Cardiology follow up :Encouraged weight loss. [facility] Cardiology follow up :Recommended checking UACR. Requesting records from PCP. [facility] Cardiology follow up :BP today: 160/64 P rior BP: 152/72 (02/17/2017) Her updated medication list for this problem includes: Lisinopril 5 Mg Oral Tablet (Lisinopril) ..... One tab. daily Chico Mitchell MD Cardiology follow up :Recommended titration sleep study. Chico Mitchell MD Cardiology follow up :Not interested in beta blockers, telesentry or Reveal at this time. Chico Mitchell MD Cardiology Hospital Follow up:No complaints of palpitations. [facility] Hospital Follow up:BP today: 152/72 P rior BP: 182/86 (05/22/2015) Her updated medication list for this problem includes: Lisinopril 2.5 Mg Oral Tabs (Lisinopril) ..... Take one pill a day [facility] Follow up:We ight loss advised. [facility] Follow up:The patient is actively using CPAP on a regular basis. She has been benefiting from therapy and should continue use. [facility] Follow up:Pt had an episode of chest discomfort associated with a flushing sensation. She was admitted to [facility] and had an extensive workup including an echo, stress myoview, venous duplex and V/Q scan, all reportedly negative. Her symptoms may be related to her hormonal therapy and I recommend that she see her salt lifter. [facility] Cardiology: H er updated medication list for this problem includes: Metformin Hcl 500 Mg Tabs (Metformin hcl) ..... 2 tabs twice daily Glimepiride 1 Mg Tabs (Glimepiride) ..... 1/2 tab twice daily for bs greater than 110 [facility] Cardiology:BP today: 182/86 P rior BP: 186/84 (05/23/2014) Chico Mitchell MD Cardiology:The pt szymanski s palpitatoins on occasion. She does not want to get a Reveal or try beta-blockers at this time. She will call us if her symptoms progress. Chico Mitchell MD Follow-up on tests: H er updated medication list for this problem includes: Xanax 0.25 Mg Tabs (Alprazolam) ..... 1 tablet by mouth as needed Aspirin 81 Mg Tabs (Aspirin) ..... 1 tablet by mouth daily Chico Mitchell MD f/u: H er updated medication list for this problem includes: Xanax 0.25 Mg Tabs (Alprazolam) ..... One tab. twice daily Orders: H olter Monitor 24 Hr ([id number]) C omplete Echo ([id number]) Chico Mitchell MD office visit: B P today: 156/80 P rior BP: 153/83 (06/06/2008) Labs Reviewed: C reat: 0.97 (06/08/2008) C hol: 183 (06/08/2008) HDL: 67 (06/08/2008) LDL: 100 (06/08/2008) T (06/08/2008) Chico Mitchell MD office visit: B P today: 156/80 Prior BP: 153/83 (06/06/2008) N uclear Stress Findings: Nondiagonstic pharmacologic stress test. Normal myocardial perfusion scan. LV dilatation on stress. Post stress EF is 54%. [facility] (03/25/2007) C ardiac Cath: Normal right and left heart filling pressures. Normal LV systolic function EF 75%. No evidence of hemodynamically significant fixed obstructive CAD. Normal renal arteries. [facility] (06/08/2008) C HOL: 183 (06/08/2008) LDL: 100 (06/08/2008) HDL: 67 (06/08/2008) T (06/08/2008) H gb: 15.5 (06/12/2008) HCT: 44.2 (06/12/2008) RBC: 5.14 (06/12/2008) WBC: 9.6 (06/12/2008) B UN: 14 (06/08/2008) Creat: 0.97 (06/08/2008) Glucose: 192 (06/08/2008) N a+: 134 (06/08/2008) K+: 4.4 (06/08/2008) Cl: 100 (06/08/2008) PT: 10.0 (06/08/2008) INR: 1.0 (06/08/2008) Chico Mitchell MD office visit: B P today: 156/80 Prior BP: 153/83 (06/06/2008) N uclear Stress Findings: Nondiagonstic pharmacologic stress test. Normal myocardial perfusion scan. LV dilatation on stress. Post stress EF is 54%. [facility] (03/25/2007) C ardiac Cath: Normal right and left heart filling pressures. Normal LV systolic function EF 75%. No evidence of hemodynamically significant fixed obstructive CAD. Normal renal arteries. [facility] (06/08/2008) C HOL: 183 (06/08/2008) LDL: 100 (06/08/2008) HDL: 67 (06/08/2008) T (06/08/2008) H gb: 15.5 (06/12/2008) HCT: 44.2 (06/12/2008) RBC: 5.14 (06/12/2008) WBC: 9.6 (06/12/2008) B UN: 14 (06/08/2008) Creat: 0.97 (06/08/2008) Glucose: 192 (06/08/2008) N a+: 134 (06/08/2008) K+: 4.4 (06/08/2008) Cl: 100 (06/08/2008) PT: 10.0 (06/08/2008) INR: 1.0 (06/08/2008) E chocardiogram: LVH. EF 65%. Trace PI. Trace TR. [facility] (03/25/2007) Orders: T HYROID PANEL WITH TSH, 3RD GENERATION ([id number]) E CP Commercial ([id number]) Chico Mitchell MD C/O CHEST PAINS: O rders: E KG ([id number]) C ardiac Cath - GC (*) Chico Mitchell MD Date Name Complete Echo Mobile Cardiac Tele Complete Echo Sleep Study Titratio n STR - Adenosine Complete Echo Mobile Cardiac Tele Complete Echo Venous Doppler Bilat eral UE Complete Echo Holter Monitor 24 Hr ECP Commercial THYROID PANEL WITH T SH, 3RD GENERATION Cardiac Cath - GC HISTORY OF PROCEDURES Procedure Date Procedure Name Provider Procedure Notes S tatus EKG Chico Mitchell MD completed EKG Chico Mitchell MD completed EKG Chico Mitchell MD completed SNOMED-CT: 42578059 Physical Exam, Performed: Pulse Exam of Foot Chico Mitchell MD completed EKG Chico Mitchell MD completed SNOMED-CT: 397003486 [id number] Current Medications Documented Chico Mitchell MD completed SNOMED-CT: 25304617 Physical Exam, Performed: Pulse Exam of Foot Chico Mitchell MD completed EKG Chico Mitchell MD completed SNOMED-CT: 047726317 [id number] Current Medications Documented Chico Mitchell MD completed EKG Chico Mitchell MD completed EKG Chico Mitchell MD completed EKG Chico Mitchell MD completed EKG Chico Mitchell MD completed
--- OUTSIDE RECORDS SUMMARY | 2024-08-30 16:46 | XMS_ITS | Clinical Summary ---
Author Organization [facility] Address [facility] [place] [address] Care Team Providers Care Development Coordinator Name Role Phone Marisabel Flores Primary Care Provider Allergies Active Allergy Reactions Criticality Noted Date Comments Iodine Hives 10/11/2020 Egg-Derived Products Anaphylaxis High 10/11/2020 Duck eggs Levofloxacin Hives,Swelling 10/11/2020 Penicillins Hives 10/11/2020 Medications HYDROcodone-hector taminophen 5-325 MG tabletIndicatio ns:Acute Pain < 7 Day Supply Take 1-2 tablets by mouth every 6 (six) hours as needed. Indications: Acute Pain < 7 Day Supply 20 tablet 10/11/2020 Active diclofenac EC 75 MG tablet Take 1 tablet (75 mg total) by mouth 2 (two) times daily as needed (Pain. Please take with meals). 30 tablet 10/11/2020 Active Social History Tobacco Use Types Packs/Day Years Used Date Smoking Tobacco: Never Smokeless Tobacco: Never Alcohol Use Standard Drinks/Week Comments Not Currently 0 (1 standard drink = 0.6 oz pur e alcohol) Comments No Sex and Gender Information Value Date Recorded Sex Assigned at Not on file Legal Sex Female 4:05 PM CDT Gender Identity Not on file Sexual Orientation Not on file Last Filed Vital Signs Vital Sign Reading Time Taken Comments Blood Pressure 174/60 10/11/2020 8:04 PM CDT Pulse 70 10/11/2020 8:04 PM CDT Temperature 36.7 C (98.1 F) 10/11/2020 4:16 PM CDT Respiratory Rate 18 10/11/2020 8:04 PM CDT Oxygen Saturation 96% 10/11/2020 8:04 PM CDT Inhaled Oxygen Concentration - - Weight 142.9 kg (315 lb) 10/11/2020 4:16 PM CDT Height 159.4 cm (5' 2.75 ) 10/11/2020 4:16 PM CD T Body Mass Index 56.25 10/11/2020 4:16 PM CDT Plan of Treatment Health Maintenance Due Date Last Done Comments Colorectal Cancer Screening Colonoscopy (10 Years) 1959 Hepatitis C 1977 DTaP, Tdap and Td Vaccines ( 1 - Tdap) 1978 Mammogram Screening 1999 Zoster Vaccines (1 of 2) 2009 COVID-19 Vaccine ( - 2023-2 5 season) 2024 Influenza Adult (#1) 2024 Dexa Scan (General) 2024 Pneumococcal Vaccine: 65+ Ye ars (1 of 1 - PCV) 2024 RSV Immunization or 60+ Years (1 - 1-dose 75+ series) 2034 Meningococcal B Vaccine Aged Out No l onger eligible based on patient's age to complete this topic Meningococcal Vaccine Aged Out No amanda sowmya eligible based on patient's age to complete this topic Pneumococcal Vaccine: Pediat rics (0 to 5 Years) and At-Risk Patients (6 to 64 Years) Aged Out No longer eligible b ased on patient's age to complete this topic RSV Immunizations Under 20 Months Aged Out No longer eligible based on patient's age to complete this topic Insurance [facility] Care Teams Development Coordinator Relationship Specialty Start Date End Date Marisabel Flores PA [address] [place] [address] PCP - General PHYSICIAN PSYCHOLOGIST RESEARCH ASSISTANT 10/11/20
--- OUTSIDE RECORDS SUMMARY | 2024-08-30 16:46 | XMS_ITS | Data Portability ---
Author Organization [facility] Address [address] [place] [address] Care Team Providers Care Hydrogen Operator Name Role Phone MARCIE PITTMAN Primary Care Provider Unavailab le Assessment Encounter Date Assessment Date Assessment LastModified by Organization Details LastModified Time 08/25/2023 08/25/2023 Mammogram up to date and normal. Not available 08/25/2023 10:30:35 03/01/2024 03/01/2024 Mammogram up to date and normal. Not available 03/01/2024 09:38:21 04/19/2024 04/19/2024 Mammogram up to date and normal. Not available 04/19/2024 09:14:07 Plan of Treatment Reminders Order Date Submit Date Provider Last Modified By Organization Details Last Modified Time Details Appointments ANY 15 2024 07:45A M KAT Atwood Not available Not available Not available Lab iron + TIBC + ferritin, serum 2023 025 [email or web address] [facility], [address] [place], [address], 04/19/2024 09:21:56 CMP, serum or plasma 2023 025 [email or web address] [facility], [address], [place], [address], 04/19/2024 09:21:56 CBC w/ auto diff 2023 025 [email or web address] [facility], [address], [address], [place], [address], 04/19/2024 09:21:56 lipid panel, serum 2023 025 [email or web address] [facility], [address], [address], [place], [address], 04/19/2024 09:21:56 HbA1c (hemoglob in A1c), blood 2023 025 [email or web address] [facility], [address], [address], [place], [address], 04/19/2024 09:21:56 HbA1c (hemoglob in A1c), blood 2023 024 [email or web address] In-Office Order, Internal Use Only DO Not Attach Compendium DO Not Attach Compendium, Do Not Delete/merge, [id number] 04/19/2024 09:27:06 TSH + free T4, serum 2023 025 [email or web address] [facility], [address], [address], [place], [address], 04/19/2024 09:21:56 iron + TIBC + ferritin, serum 2023 024 [email or web address], [address], [address], [place], [address], 05/05/2024 10:38:47 lipid panel, serum 2023 024 [email or web address] [facility], [address], [address], [place], [address], 04/20/2024 09:35:56 CMP, serum or plasma 2023 024 [email or web address], [address], [address], [place], [address], 05/05/2024 10:38:46 CBC w/ auto diff 2023 024 [email or web address] [facility], [address], [address], [place], [address], 05/05/2024 10:38:46 urinalysi s, complete 2023 024 [email or web address] [facility], [address], [address], [place], [address], 05/05/2024 10:38:46 culture, urine 2023 024 [email or web address] [facility], [address], [address], [place], [address], 05/05/2024 10:38:47 HbA1c (hemoglob in A1c), blood 2023 024 [email or web address], [address], [address] [place], [place], [address], 05/05/2024 10:38:46 TSH + free T4, serum 2023 024 [email or web address], [address], [address] [place], [place], [address], 05/05/2024 10:38:47 CMP, serum or plasma 2023 024 [email or web address] [facility], [address], [address], [place], [address], 02/04/2024 08:03:43 CBC w/ auto diff 2023 024 [email or web address] [facility], [address], [address], [place], [address], 02/04/2024 08:03:43 urinalysi s, complete 2023 024 [email or web address] [facility], [address], [place], [address], 10/14/2023 11:11:55 culture, urine 2023 024 [email or web address] [facility], [address] [place], [address], 09/27/2023 22:09:01 HbA1c (hemoglob in A1c), blood 2023 024 [email or web address] [facility], [address], [place], [address], 02/04/2024 08:03:43 Referral None recorded. Procedures colonosco py procedure (PROC) [address] [facility], [address], [address], [place], [address], 10/11/2023 15:09:19 Surgeries None recorded. Imaging None recorded. Medication Orders OneTouch Verio test strips 2023 024 [facility]57318, [address], [place], [place], [id number], 04/19/2024 09:22:08 glimepiri de 1 mg tablet 2023 024 [facility] #57320, [address], [place], [place], [id number], 04/19/2024 09:03:16 metformin 1,000 mg tablet 2023 024 [place] [facility] #86242, [address], [place], [place], [id number], 03/01/2024 09:51:50 carvedilo l 12.5 mg tablet 2023 024 [facility] #23053, [address], [place], [place], [id number], 04/19/2024 09:02:55 omeprazol e 40 mg capsule,d elayed release 2023 024 [place] [facility] #34816, [address], [place], [place], [id number], 08/25/2023 10:47:01 glimepiri de 1 mg tablet 2023 024 [place] [facility] #43311, [address], [place], [place], [id number], 08/25/2023 10:47:01 metformin 1,000 mg tablet 2023 024 [email or web address] [facility] #93539, [address], [place], [place], [id number], 08/25/2023 23:59:59 carvedilo l 6.25 mg tablet 2023 024 [place] [facility] #82035, [address], [place], [place], [id number], 03/01/2024 09:51:07 Patient TargetsNo targets recorded. Patient Instructions Encounter Date Encounter Id Patient Instructions Last Modified By Organization Details Last Modified Time 03/01/2024 [id number] A healthy lifestyle: care instructions Not available 03/01/2024 09:51:39 04/19/2024 [id number] A healthy lifestyle: care instructions Not available 04/19/2024 09:21:56 Reason for Referral None Reported. Results Created Date Observation Date Name Description Value Unit Range Abnormal Flag Note LastModifiedBy Organization Detail LastModifiedTime 04/19/20 24 04/19/2024 HbA1c (hemo globi n A1c), blood HbA1c 7.7 Not Available In-Office Order Internal Use Only DO Not Attach Compendium DO Not Attach Compendium, Do Not Delete/merge, [id number] 04/19/2024 09:25:23 Result Notes None recorded. Problems Name Problem SNOMED Code Status Onset Date Resolution Date Notes Provider Name and Address Organization Details Recorded Time Uncontroll ed type 2 diabetes mellitus 746158691 Active 2023 KTA Atwood Attn: [place],[address] [facility], [place], [place], [address] [place] [address] 2, [place] - [facility] 4 18:45:00 Benign essential hypertensi on 2803665 Active 2023 KAT Atwood Attn: [place],[address] [facility], [place], [place], [address] [place] [address], [place] [facility] 4 18:45:01 Acid reflux 411744129 Active 2023 KAT Atwood Attn: [place],[address] [facility], [place], [place], [address] [place] [address], [place] [facility] 4 18:45:04 Hypothyroi dism 96046252 Active 2023 KAT Atwood Attn: [place],[address] [place], [place], [address] [place] [address] 2, [place] [facility] 4 18:45:07 Lower urinary tract symptoms 389808949 Active 2023 KAT Atwood Attn: [place],[address] [place], [place], [address] [place] [address], [place] [facility] 4 18:45:12 Iron deficiency 33718043 Active 2023 KAT Atwood Attn: [place],[address] [place], [place], [address] [place] [address], [place] [facility] 4 18:45:18 Long-term drug therapy Active 2023 KAT Atwood Attn: [place],[address] [place], [place], [address] [place] [address], [place] [facility] 4 18:45:20 Obesity 538472582 Active 2023 KAT Atwood Attn: [place],[address] [place], [address], [place] [facility] 4 18:46:00 Body mass index 40+ - severely obese 711756694 Active 2023 KAT Atwood Attn: [place] [employer],[address] [facility], [place], [address], [place] [facility] 4 18:46:01 History of polyp of colon 121505628 Active 2023 KAT Atwood Attn: Accountin g,[address] [facility], [place], [address], [place] [facility] 4 09:17:31 Cholestero l screening Active 2023 KAT Atwood Attn: Accountin g,[address] [facility], [place], [address], [place] [facility] 4 15:48:47 Degenerati on of lumbar interverte bral disc 33383825 Active degenerati ve of lumbar spine Aravind Stahl [place] null, [place] [facility] 5 15:28:56 Problem Notes None recorded. Procedures Surgical History Date Name Laterality Status Provider Name and Address Organization Details Recorded Time 10/26/19 24 colonoscopy completed Stephani De Jesus LPN [place] [facility] 01/14/2024 10:49:07 Arthroscopic Surgery [place] Aravind Stahl [place] [facility] 08/25/2023 15:59:41 Knee Surgery [place] Aravind [place] [facility] 08/25/2023 15:59:49 Breast Surgery [place]ravind [place] [facility] 08/25/2023 16:01:19 hysterectomy [place] Aravind [place] [facility] 08/25/2023 16:01:36 Imaging Results None recorded. Procedure Notes None recorded. Medical Equipment None Reported. Allergies Allergen ID Allergen Name Allergen Category Reaction Reaction Severity Criticality Documentation Date Start Date Code Code System Note Provider Name and Address Organization Details Recorded Time 006874 penicilla mine medicatio n Not available Not available Not available 08/25/2023 7975 RxNorm Not Available Not Available Not Available 091348 lisinopri l medicatio n Not available Not available Not available 08/25/2023 60856 RxNorm Not Available Not Available Not Available Medications Name Sig Start Date Stop Date Status Note LastModified by Organization Details LastModified Time promethazi ne-DM 6.25 mg-15 mg/5 mL oral syrup TAKE 5 ML BY MOUTH EVERY 6 HOURS NEEDED 03/01 completed Not Available Not Available Not Available carvedilol 6.25 mg tablet TAKE 1 TABLET BY MOUTH TWICE DAILY 03/01 completed Not Available Not Available Not Available carvedilol 12.5 mg tablet Take 1 tablet every day by oral route for 90 days. active Not Available Not Available No t Available clindamyci n HCl 300 mg capsule TAKE ONE CAPSULE BY MOUTH EVERY 8 HOURS 03/01 completed Not Available Not Available Not Available azithromyc in 250 mg tablet 09/26 completed Not Available Not Available Not Available benzonatat e 200 mg capsule TAKE 1 CAPSULE BY MOUTH THREE TIMES DAILY FOR COUGH 03/01 completed Not Available Not Available Not Available metronidaz ole 500 mg tablet TAKE 1 TABLET BY MOUTH EVERY 8 HOURS 03/01 completed Not Available Not Available Not Available acetaminop hen 300 mg-codeine 30 mg tablet TAKE 1 TABLET BY MOUTH FOUR TIMES DAILY NEEDED 03/01 completed Not Available Not Available Not Available ciprofloxa marlen 500 mg tablet TAKE 1 TABLET BY MOUTH EVERY 12 HOURS 03/01 completed Not Available Not Available Not Available omeprazole 40 mg capsule,de layed release TAKE 1 CAPSULE BY MOUTH EVERY DAY 2023 active Not Available Not Available Not Avai lable glimepirid e 1 mg tablet Take 1 tablet twice a day by oral route with meal(s). 2023 active take two whole tab 1x a day Not Available Not Available Not Available estradiol 1 mg tablet TAKE 1 TABLET BY MOUTH TWICE DAILY active Not Available Not Available No t Available OneTouch Ultra Test strips USE TO CHECK BLOOD GLUCOSE TWICE DAILY active Not Available Not Available No t Available benzonatat e 100 mg capsule TAKE 1 CAPSULE BY MOUTH EVERY 8 HOURS NEEDED 03/01 completed Not Available Not Available Not Available levothyrox ine 50 mcg tablet TAKE 1 TABLET BY MOUTH EVERY DAY 12/27/ 2024 active Not Available Not Available Not Avai lable metformin 1,000 mg tablet TAKE 1 TABLET TWICE DAILY WITH MEALS active Not Available Not Available No t Available epinephrin e 0.3 mg/0.3 mL injection, auto-injec tor ADMINISTE R 0.3 ML IN THE MUSCLE 1 TIME NEEDED 2024 active Not Available Not Available Not Avai lable estradiol 0.01% (0.1 mg/gram) vaginal cream Insert by vaginal route. 08/24 completed Not Available Not Available Not Available albuterol sulfate HFA 90 mcg/actuat ion aerosol inhaler INHALE 2 PUFFS BY MOUTH EVERY 4 HOURS NEEDED 2024 active Not Available Not Available Not Avai lable estradiol 03/01 completed Not Available Not Available Not Available OneTouch Ultra2 Meter DIRECTED active Not Available Not Available No t Available OneTouch Delica Plus Lancet 33 gauge USE TO TEST BLOOD SUGAR TWICE DAILY active Not Available Not Available No t Available albuterol 90 mcg-budeso nide 80 mcg/actuat ion HFA aerosol inhaler Inhale by inhalatio n route. 08/24 completed Not Available Not Available Not Available Vitals Date Recorded Body height Respiratory rate Body mass index (BMI) Body weight Oxygen saturation Oxygen saturation in Arterial blood by Pulse oximetry Heart rate Systolic blood pressure Diastolic blood pressure Provider Name and Address Organization Details Last Updated DateTime 4 159.39 cm 18 /min 56.9 kg/m2 892887. 53 g 98 % 98 % 110 /min 138 mm[Hg] 68 mm[Hg] Aravind Stahl MA [facility] 4 10:15:50 Date Recorded Systolic blood pressure Diastolic blood pressure Provider Name and Address Organization Details Last Updated DateTime 08/25/2023 150 mm[Hg] 80 mm[Hg] KAT Atwood Attn: Accounting,[address] [place], [address], [facility] 08/25/2023 10:35:31 Date Recorded Body height Respiratory rate Body mass index (BMI) Body weight Oxygen saturation Oxygen saturation in Arterial blood by Pulse oximetry Heart rate Systolic blood pressure Diastolic blood pressure Provider Name and Address Organization Details Last Updated DateTime 4 159.39 cm 18 /min 56.2 kg/m2 930011. 88 g 96 % 96 % 76 /min 142 mm[Hg] 82 mm[Hg] Aravind Stahl MA [facility] 09:31:57 Date Recorded Systolic blood pressure Diastolic blood pressure Provider Name and Address Organization Details Last Updated DateTime 03/01/2024 150 mm[Hg] 80 mm[Hg] KAT Atwood Attn: Accounting,[address] [place], [address], [facility] 03/07/2024 18:37:30 Date Recorded Body height Body mass index (BMI) Body weight Oxygen saturation Oxygen saturation in Arterial blood by Pulse oximetry Heart rate Systolic blood pressure Diastolic blood pressure Provider Name and Address Organization Details Last Updated DateTime 159.39 cm 56.4 kg/m2 616513. 19 g 96 % 96 % 86 /min 148 mm[Hg] 82 mm[Hg] Aravind Stahl MA [facility] 09:07:56 Date Recorded Systolic blood pressure Diastolic blood pressure Provider Name and Address Organization Details Last Updated DateTime 04/19/2024 140 mm[Hg] 80 mm[Hg] KAT Atwood Attn: Accounting,[address] [place], [address], [facility] 04/19/2024 09:21:21 Social History Question Answer Notes LastModified by Organizat ion Details LastModified Time Tobacco Smoking Status Never Smoker Aravind Stahl MA null, [facility] 08/25/2023 10:11:41 Do You Have An Advance Directive? No Information n ot available 03/01/2024 What Is Your Level Of Alcohol Consumption? None Information not available 08/25/2023 Are You Blind Or Do You Have Difficulty Seeing? No Glasses Information n ot available 08/25/2023 What Is Your Level Of Caffeine Consumption? None Information not available 08/25/2023 In The 14 Days Before Symptom Onset, Have You Had Close Contact With A Laboratory-confirm ed COVID-19 While That Case Was Ill? No Information n ot available 08/25/2023 In The 14 Days Before Symptom Onset, Have You Had Close Contact With A Person Who Is Under Investigation For COVID-19 While That Person Was Ill? No Information not available 08/25/2023 Have You Been To An Area Known To Be High Risk For COVID-19? No Information not available 08/25/2023 Are You Deaf Or Do You Have Serious Difficulty Hearing? No Information not available 08/25/2023 What Type Of Diet Are You Following? REGULAR Information n ot available 08/25/2023 Are There Any Guns Present In Your Home? No Information not available 08/25/2023 What Was The Date Of Your Most Recent Tobacco Screening? 04/19/2024 Information not available 04/19/2024 What Is Your Relationship Status? Information not available 04/19/2024 Do You Use Your Seat Belt Or Car Seat Routinely? Yes Information not available 08/25/2023 Do You Have Smoke And Carbon Monoxide Detectors In Your Home? Yes Information not available 08/25/2023 Do You Use Any Illicit Or Recreational Drugs? No Information not available 08/25/2023 Do You Use Sunscreen Routinely? No Information not available 08/25/2023 Has Tobacco Cessation Counseling Been Provided? No Information not available 08/25/2023 Do You Or Have You Ever Used Any Other Forms Of Tobacco Or Nicotine? No Information not available 08/25/2023 Sex: Female Functional Status Question Answer Note LastModified by Organization D etails LastModified Time Are you able to care for yourself? Yes Information n ot available 08/25/2023 What is your exercise level? None Information not available 08/25/2023 Mental Status None recorded. Family History Relationship Description Onset Age of this Age Resolved Age Notes LastModified by Organization Details LastModified Time Father Alcohol abuse [email or web address] Not available 2023 16:02:09 Father Cerebrovascu lar accident [email or web address] Not available 16:40:12 Father Diabetes mellitus [email or web address] Not available 2023 16:40:31 Father Heart disease [email or web address] Not available 2023 16:40:52 Father Hypertensive disorder tcarterma Not available 2023 16:41:08 Father Malignant tumor of lung [email or web address] Not available 2023 16:41:48 Mother Depressive disorder [email or web address] Not available 2023 16:40:20 Mother Diabetes mellitus [email or web address] Not available 2023 16:40:31 Mother Disorder of thyroid gland tcarterma Not available 2023 16:40:36 Mother Heart disease [email or web address] Not available 2023 16:40:51 Mother Hypertensive disorder tcarterma Not available 2023 16:41:08 Mother Kidney disease tcarterma Not available 2023 16:41:29 Notes:no change Medical History Condition Response Coronary Artery Disease N Other N High Blood Pressure Y Atrial Fibrillation N Kidney or Bladder Problems Y Thyroid Problems N GI Problems Y Depression N COPD N Blood Clots N Skin Problems N Anemia Y Heart Attack (IA) N Anxiety Disorder N Diabetes Y Muscle, Joint, or Bone Problems N Seizures/Epilepsy Y Acid Reflux (GERD) Y Cancer N Stroke N Asthma N Allergies Y High Cholesterol N Hepatitis N Liver Disease N Headaches N Heart Failure N Osteoporosis N Gynecological History Statement/Question Response Menses Monthly N Current Control Method Menopause Obstetrics History GPAL:G 2 P 2 0 0 2 Type Value Multiple Births 0 Full Term 2 Induced 0 Spontaneous 0 Premature 0 Living 2 Ectopics 0 Total 2 Past Encounters Encounter ID Performer Location Encounter Start Date Encounter Closed Date Diagnosis/Indication Diagnosis SNOMED-CT Code Diagnosis ICD10 Code Diagnosis Note [id number] KAT Atwood [facility] [address] [place] [address] 08/25/2023 09:44:40 08/26/2023 10:19:28 History of polyp of colon 043194913 Z86.010 refer for colonoscop y that is due; hx of colon polyps Uncontroll ed type 2 diabetes mellitus 363021364 E11.65 due for a1c lab Long-term drug therapy 263138623 Z79.899 routine cmp and cbc due Benign ess ential hypertension 3031095 I10 start coreg 6.25 mg bid for tighter bp control. Lower urin kiko tract symptoms 316518563 R39.9 check UA w/cx Renewal of prescription 061054227 Z76.0 refill on glimeperid e 1mg and metformin 1000mg Acid reflux 115182197 K2 1.9 Rx for omeprazole 40mg daily. Hypothyroidism 34645951 E03.9 stable on levothyrox ine 50mcg daily. [id number] KAT Atwood [facility] [address] [place] [address] 03/01/2024 09:09:33 03/01/2024 10:48:09 Body mass index 40+ - severely obese 498336475 Z68.43 BMI is 56.2 Obesity 908231834 E66.8 discussed healthy diet, exercise, controllin g carbohydra meredith and added sugars in the diet Uncontroll ed type 2 diabetes mellitus 717422720 E11.65 8.9% A1c on labs patient has not been following strict diet, she will start to restrict carbs and sugars and have dosing of glimepirid e and metformin as directed and repeat labs again next month. Benign ess ential hypertension 3353098 I10 boost to carvedilol 12.5mg bid. Blood pressure is running 140-150 range today on exam. Acid reflux 490039528 K2 1.9 omeprazole 40mg daily. Stable on medication Hypothyroidism 42916810 E03.9 stable on levothyrox ine 50mcg daily. Next labs due next month History of polyp of colon 579901041 Z86.010 History noted of colon polyp, up-to-date on colonoscop y from October of 2023 Lower urin kiko tract symptoms 331655196 R39.9 check UA w/cx, check urine with culture on next set of labs Long-term drug therapy 382854329 Z79.899 Next labs are due late March Renewal of prescription 143636277 Z76.0 refill on glimeperid e 1mg and metformin 1000mg Iron deficiency 96971794 E61.1 History of iron deficiency Cholesterol screening 27 7974536 Z13.220 Fasting lipid panel due in March Adult heal th examination 960720046 Z00.01 Annual wellness exam complete [id number] KAT Atwood [facility] [address] [place] [address] 04/19/2024 08:58:15 04/19/2024 13:14:28 Benign essential hypertension 5349593 I10 Pressure is stable but borderline at 1 40/80 now on higher dose carvedilol 12.5mg bid. Long-term drug therapy 046417439 Z79.899 CBC and CMP due in October Hypothyroidism 97409324 E03.9 stable on levothyrox ine 50mcg daily. Repeat thyroid panel in October Uncontrol ed type 2 diabetes mellitus 261357165 E11.65 7.7% A1c on check today in the office which is much improved from last labs. Patient does need a refill on One-Touch meter and supplies. We will repeat an A1c in October. Acid reflux 191416298 K2 1.9 omeprazole 40mg daily. Stable on medication Iron deficiency 33511740 E61.1 History of iron deficiency Body mass index 40+ - severely obese 067116592 Z68.43 BMI is 56.2 Obesity 031655361 E66.9 discussed healthy diet, exercise, controllin g carbohydra meredith and added sugars in the diet History of polyp of colon 632411548 Z86.0100 6 polyps on october 2023, repeat 3 years. Cholesterol screening 27 8131407 Z13.220 Fasting lipids due again in October Health Concerns Section Related Observation LastModified by Organization Detai ls LastModified Time None Recorded Concern Status LastModified by Organization Details LastModified Time None Recorded Advance Directives Directive N: Payers Encounter Date Sequence Insurance Name Policy Number Policy Mir Covered Member ID Mir Member ID Guarantor Name 08/25/2023 1 [place] [place] [address] [id number] Mona Dona 03/01/2024 1 [place] [address] [id number] Mona Dona 04/19/2024 1 [place] [address]a [id number] Mona Dona Notes Date Note Type Note Provider Name and Address Organization Details Recorded Time 08/25/19 24 text/htm l DiabetesReported bypatient.Duration:chronic Control:worsened since last visit; treated with diet and oral medications; hemoglobin A1C has been less than 7; hemoglobin A1C goal is less than 7; BP usually runs 135-140/85-90, goal is Compliance:no side effects from medications Self Care:seeing eye doctor regularly; checking feet regularly Associated Symptoms:weight gain ( lbs);increased urinationHypertensionReported bypatient.Severity:mild Duration:has noted for years Onset/Timing:worse Alleviating Factors:medication Aggravating Factors:worse with activity;weight change Associated Symptoms:no shortness of breath; no fatigue; no palpitations; no decline in exercise capacity; no snoringLower Urinary Tract Symptoms (LUTS)Reported bypatient.Location:bladder Quality:tender; improving Severity:mild Onset/Timing:< 1 week Duration:4-10 times a day Context:denies new medication treatment Associated Symptoms:abdominal painReflux/GERDReported bypatient.Symptomsno difficulty swallowing; no pain swallowing; no postprandial pain Severity:improving Duration:present 5 or more years Onset/Timing:occasional Context:non-smoker; no drug/alcohol abuse; no drug alcohol withdrawal Alleviating Factors:medication; protein pump inhibitors Aggravating Factors:lying down;worsened by food Associated Symptoms:no frequent coughing; no feeling of fullness/mass in throat; no hoarseness; no food getting stuck; no nausea; no vomiting;heartburnThyroidReporte d bypatient.Quality:improving Severity:mild Duration:constant Onset/Timing:better Context:history of hypothyroidism Modifying Factors:medication Exerciseno exercise Associated Symptoms:weight gain ( lbs) KAT Atwood Attn: Accounting, [address] [place], [address], [facility] 08/26/2023 00:07:18 03/01/20 24 text/htm l DiabetesReported bypatient.Duration:chronic Control:worsened since last visit; treated with diet and oral medications; hemoglobin A1C has been less than 7; hemoglobin A1C goal is less than 7; BP usually runs 135-140/85-90, goal is Compliance:no side effects from medications Self Care:seeing eye doctor regularly; checking feet regularly Associated Symptoms:weight gain ( lbs);increased urinationHypertensionReported bypatient.Severity:mild Duration:has noted for years Onset/Timing:worse Alleviating Factors:medication Aggravating Factors:worse with activity;weight change Associated Symptoms:no shortness of breath; no fatigue; no palpitations; no decline in exercise capacity; no snoringLower Urinary Tract Symptoms (LUTS)Reported bypatient.Location:bladder Quality:tender; improving Severity:mild Onset/Timing:< 1 week Duration:4-10 times a day Context:denies new medication treatment Associated Symptoms:abdominal painReflux/GERDReported bypatient.Symptomsno difficulty swallowing; no pain swallowing; no postprandial pain Severity:improving Duration:present 5 or more years Onset/Timing:occasional Context:non-smoker; no drug/alcohol abuse; no drug alcohol withdrawal Alleviating Factors:medication; protein pump inhibitors Aggravating Factors:lying down;worsened by food Associated Symptoms:no frequent coughing; no feeling of fullness/mass in throat; no hoarseness; no food getting stuck; no nausea; no vomiting;heartburnThyroidReporte d bypatient.Quality:improving Severity:mild Duration:constant Onset/Timing:better Context:history of hypothyroidism Modifying Factors:medication Exerciseno exercise Associated Symptoms:weight gain ( lbs) KAT Atwood Attn: Accounting, [address] [place], [address], [place] [facility] 03/07/2024 18:46:42 04/19/20 24 text/htm l DiabetesReported bypatient.Duration:chronic Control:worsened since last visit; treated with diet and oral medications; hemoglobin A1C has been less than 7; hemoglobin A1C goal is less than 7; BP usually runs 135-140/85-90, goal is Compliance:no side effects from medications Self Care:seeing eye doctor regularly; checking feet regularly Associated Symptoms:weight gain ( lbs);increased urinationHypertensionReported bypatient.Severity:mild Duration:has noted for years Onset/Timing:worse Alleviating Factors:medication Aggravating Factors:worse with activity;weight change Associated Symptoms:no shortness of breath; no fatigue; no palpitations; no decline in exercise capacity; no snoringReflux/GERDReported bypatient.Symptomsno difficulty swallowing; no pain swallowing; no postprandial pain Severity:improving Duration:present 5 or more years Onset/Timing:occasional Context:non-smoker; no drug/alcohol abuse; no drug alcohol withdrawal Alleviating Factors:medication; protein pump inhibitors Aggravating Factors:lying down;worsened by food Associated Symptoms:no frequent coughing; no feeling of fullness/mass in throat; no hoarseness; no food getting stuck; no nausea; no vomiting;heartburnThyroidReporte d bypatient.Quality:improving Severity:mild Duration:constant Onset/Timing:better Context:history of hypothyroidism Modifying Factors:medication Exerciseno exercise Associated Symptoms:weight gain ( lbs) KAT Atwood Attn: Accounting, [address] [place], [address], [place] [facility] 05/05/2024 15:49:04 OBGyn Episode No OBEpisode recorded.
== END 2024-08-30 15:28 | disposition home or self-care (01) ==
LOC: ANHIMG 15:29
PROVIDERS: PCP Physician Assistant; Visit Provider Obstetrics & Gynecology
DX: Z12.31 Encounter for screening mammogram for malignant neoplasm of breast (principal); R92.0 Mammographic microcalcification found on diagnostic imaging of breast
CPT/HCPCS: 77063; 77067

== ENCOUNTER 2024-09-12 10:48 | Outpatient (CLI) | payer BC, SELFPAY ==
--- NOTE | ~2024-09-12 | MM_ITS ---
EXAMINATION: MM diagnostic kaleb RT w teja HISTORY: Follow-up right breast calcifications. TECHNIQUE: Additional 3-D tomosynthesis images of the right breast were performed and synthetic 2-D i mages were generated. CAD analysis was submitted and interpreted. COMPARISON: Comparison to multiple prior studies sequentially, with oldest reviewed study dated 03/07. BREAST PARENCHYMAL COMPOSITION: Not dense: There are scattered areas of fibroglandular density. FINDINGS: There are 2 clusters of calcifications in the upper central aspect of the right breast, pos terior third which are new compared with prior examinations. These calcifications have a relatively m onomorphic appearance and are likely benign. There are no suspicious masses or architectural distorti on. IMPRESSION: 1. Probable benign right breast calcifications. 2. Recommend 6 month follow-up diagnostic right mammogram BI-RADS category 3, probably benign findings. Reviewed, dictated and finalized at location A.
--- OUTSIDE RECORDS SUMMARY | 2024-09-12 12:17 | XMS_ITS | CONTINUITY OF CARE DOCUMENT ---
Author Name fany, fany Address Unknown Organization [facility] Address [address] [place] [address] Phone [phone] Care Team Providers Care Steam Drier Operator Name Role Phone Chico Mitchell MD Unavailable [phone] KINA MORA, BAY Walls Unavailable [phone] BAY CASTANON MD Unavailable PROBLEMS Condition Status [...] In-person encounter Office Visit Chico Mitchell MD [facility] Office CHEST PAIN-03/13 NUC NEGHTNCOVID-19 in 05/2020AV block, second degreeShortness of breath - In-person encounter Office Visit Chico Mitchell MD [facility] Office - In-person encounter Office Visit Chico Mitchell MD [facility] Thyroid nodule - In-person encounter Office Visit Chico Mitchell MD [place] [facility] - In-person encounter Office Visit Chico Mitchell MD [place] [facility] Obstructive sleep apneaCAD-06/15 CATH NO CADLEG PAIN-04/17 MALIA DOP -02/15 MALIA DOP NEGARM PAINAMI SUBENDOCARDIAL-03/19 NUC NL EF 71FAMILY HISTORY OF CADFamily History of CVA - In-person encounter Office Visit Chico Mitchell MD [place] [facility] PHYSICAL EXAMINATION - In-person encounter Office Visit Chico Mitchell MD [place] [facility] - In-person encounter Office Visit Chico Mitchell MD [place] [facility] - In-person encounter Office Visit Chico Mitchell MD [place] [facility] HTN - In-person encounter Office Visit Chico Mitchell MD [place] [facility] - In-person encounter Office Visit Chico Mitchell MD [place] [facility] - In-person encounter Office Visit Chico Mitchell MD [place] [facility] - In-person encounter Office Visit Chico Mitchell MD [place] [facility] DIABETES MELLITUS - In-person encounter Office Visit Chico Mitchell MD [place] [facility] - In-person encounter Office Visit Chico Mitchell MD [place] [facility] - In-person encounter Office Visit Chico Mitchell MD [facility] PALPITATIONS-06/16 HOLTER SR-SV ECTOPICS HR 45-105 - In-person encounter Office Visit Chico Mitchell MD [place] [facility] Obstructive sleep apneaHTN - In-person encounter Office Visit Chico Mitchell MD [facility] VITAL SIGNS Date Observation Value Provider [...] Paz Body Mass Index (Ratio) 56.15 kg/m2 Pato tori Roberson blood pressure, diastolic 70 mm[Hg] [...] systolic, left arm 140 mm [Hg] [facility] blood pressure, diastolic, right arm 66 m m[Hg] [facility] blood pressure, systolic, right arm 136 m m[Hg] [facility] Body Mass Index (Ratio) 55.09 [...] Mass Index (Ratio) 54.91 kg/m2 Anea phillip [facility] blood pressure, diastolic, left arm 72 mm [Hg] Aneatris Brown blood pressure, systolic, left arm 146 mm [Hg] Aneatris Brown blood pressure, diastolic, right arm 84 m m[Hg] Aneatris Brown blood pressure, systolic, right arm 186 m m[Hg] Aneatris Brown blood pressure, diastolic 84 mm[Hg] An eatris [facility] blood pressure, systolic 186 mm[Hg] Ane atris [facility] pulse rate 69 /min Aneatris Brown oxygen [...] Clark RN respiratory rate E&M 17 /min Davon slater RN Body Mass Index (Ratio) 54.40 [...] mm[Hg] Cholo Clark RN blood pressure, systolic 122 mm[Hg] [...] blood pressure, diastolic 83 mm[Hg] Fe mary Mary blood pressure, systolic 153 mm[Hg] Fel icia Newdale pulse rate 68 /min Jenny Mary oxygen saturation, oximetry 97 % Jenny Newdale respiratory rate E&M 16 /min Jenny Mary [...] % Bandar Lewis platelet count 248 10*3/uL [facility] red blood cell distribution width 12.4 % [facility] mean corpuscular hemoglobin concentration, RBC 35.4 g/dL [facility] mean corpuscular hemoglobin, RBC 30.9 pg [facility] mean corpuscular volume, RBC 87.4 fL [facility] hematocrit, blood 42.4 % [facility] hemoglobin, blood 15.0 g/dL [facility] erythrocyte (RBC) count 4.85 10*6/mm3 [facility] leukocyte count, blood 7.5 10*3/mm3 [facility] protein, total, serum 6.5 g/dL [facility] albumin, serum 4.0 g/dL [facility] bilirubin, serum, total 0.9 mg/dL [facility] alkaline phosphatase, serum 37 1/L [facility] alanine aminotransferase (SGPT), serum 30 1/L [facility] aspartate aminotransferase (SGOT), serum 40 1/L [facility] calcium, serum 9.2 mg/dL [facility] blood glucose, random 125 mg/dL [facility] creatinine, serum 0.70 mg/dL [facility] urea nitrogen, blood 12 mg/dL [facility] carbon dioxide, serum, total 24 mmol/L [facility] chloride, serum 103 mmol/L [facility] potassium, serum 3.8 mmol/L [facility] sodium, serum 137 mmol/L [facility] triglyceride, serum, fasting 149 mg/dL [facility] HDL cholesterol, serum 50 mg/dL [facility] LDL cholesterol, serum 91 mg/dL [facility] cholesterol, serum 166 mg/dL [facility] LDL cholesterol, serum 88 mg/dL Chico Mitchell MD globulins, serum, total 2.8 g/dL Denetr Estimated Glomerular Filtration Rate (calc) 79 mL/min/{1 .73_m2} [facility] protein, total, serum 6.4 g/dL albumin, serum 3.6 g/dL bilirubin, serum, total 0.73 mg/dL [facility] alkaline phosphatase, serum 66 1/L alanine aminotransferase (SGPT), serum 36 1/L aspartate aminotransferase (SGOT), serum 33 1/L [facility] calcium, serum 8.9 mg/dL [facility] blood glucose, fasting 309 mg/dL creatinine, serum 0.77 mg/dL [facility] urea nitrogen, blood 13 mg/dL [facility] carbon dioxide, serum, total 22 mmol/L chloride, serum 102 mmol/L potassium, serum 4.4 mmol/L sodium, serum 135 mmol/L [facility] amylase, serum 117 1/L [facility] lipase, serum 33 1/L [facility] PTT patient 26.6 s prothrombin time (patient) 12.4 s [facility] international normalized ratio (INR) 0.90 [facility] anion gap, serum 11 troponin I 0.01 ng/mL [facility] calcium, serum 8.9 mg/dL [facility] blood glucose, fasting 205 mg/dL [facility] creatinine, serum 0.67 mg/dL [facility] urea nitrogen, blood 10 mg/dL carbon dioxide, serum, total 25 mmol/L chloride, serum 102 mmol/L Denetr/ 29 potassium, serum 4.1 mmol/L [facility] sodium, serum 134 mmol/L [facility] hemoglobin A1C, blood, as % of total hemoglobin 9.8 % [facility] platelet count 192 10*3/uL [facility] red blood cell distribution width 12.7 % [facility] mean corpuscular hemoglobin concentration, RBC 35.4 g/dL [facility] mean corpuscular hemoglobin, RBC 30.4 pg [facility] mean corpuscular volume, RBC 86.0 fL [facility] hematocrit, blood 43.5 % [facility] hemoglobin, blood 15.4 g/dL [facility] erythrocyte (RBC) count 5.06 10*6/mm3 [facility] leukocyte count, blood 6.7 10*3/mm3 [facility] thyroid stimulating hormone, serum 2.49 u[IU]/mL [facility] Normal free thyroxine index 3.1 [facility] 1.4-3.8 Normal thyroxine, serum, total 12.1 ug/dL [facility] 4.5-12.5 Normal triiodothyronine resin uptake 26 % [facility] 22-35 Normal platelet count 246 10*3/uL [facility] hematocrit, blood 44.2 % [facility] hemoglobin, blood 15.5 g/dL [facility] erythrocyte (RBC) count 5.14 10*6/mm3 [facility] leukocyte count, blood 9.6 10*3/mm3 [facility] platelet count 246 10*3/uL [facility] hematocrit, blood 44.2 % [facility] hemoglobin, blood 15.5 g/dL [facility] erythrocyte (RBC) count 5.14 10*6/mm3 [facility] leukocyte count, blood 9.6 10*3/mm3 [facility] GELA blood glucose, fasting 192 mg/dL [facility] GELA creatinine, serum 0.97 mg/dL [facility] GELA urea nitrogen, blood 14 mg/dL [facility] GELA carbon dioxide, serum, total 23 mmol/L [facility] GEL[facility] chloride, serum 100 mmol/L [facility] G[facility] potassium, serum 4.4 mmol/L [facility] G[facility] sodium, serum 134 mmol/L [facility] triglyceride, serum, fasting 81 mg/dL Tegan Brain REN HDL cholesterol, serum 67 mg/dL [facility] LDL cholesterol, serum 100 mg/dL [facility] GELA cholesterol, serum 183 mg/dL [facility] GELA coagulation managed by Tegan De La Paz RN international normalized ratio (INR) 1.0 Tegan Brain REN prothrombin time (patient) 10.0 s Tegan eD La Paz RN HISTORY OF MEDICATION USE Medication Status Instructions Dates Provider Indications Com ments LEVOTHYROXINE SODIUM 50 MCG ORAL TABLET active 1 tablet by mouth daily Jenny Villarreal METOPROLOL TARTRATE 25 MG ORAL TABLET active One tablet in the evening Chico Mitchell MD MECLIZINE HCL 25 MG ORAL TABLET active take 1 tab once a day as needed Delia Adkisn ESTRADIOL 1 MG ORAL TABLET active Take [...] no Delia Jed smoking status Never smoker eDlia Myers evelyn social history reviewed E&M chinmay [...] Policy type / Coverage type Félix red green party ID BLUE PREFERRED HMO [facility] [id number] ADVANCE DIRECTIVES Name Date DISCUSSED - NO DECISION MADE TREATMENT PLAN Date Name Performer Cardiology:The patie nt is using CPAP/BiPAP on a regular basis. The patient has been benefiting from therapy and should continue use. [facility] Cardiology:Her updat ed medication list for this problem includes: Lisinopril 5mg Tablets (Lisinopril) ..... Take 1 tablet by mouth daily Metformin Hcl 500 Mg Oral Tablet (Metformin hcl) ..... 2 tabs twice daily Glimepiride 1 Mg Oral Tablet (Glimepiride) ..... 1/2 tab twice daily for bs greater than 110 [facility] Cardiology:BP today: 138/60 P rior BP: 138/70 (08/15/2019) Her updated medication list for this problem includes: Metoprolol Tartrate 25 Mg Oral Tablet (Metoprolol tartrate) ..... One tablet in the evening Lisinopril 5mg Tablets (Lisinopril) ..... Take 1 tablet by mouth daily [facility] Cardiology:Pt had CO VID-19 in May. She did not need to be hospitalized but had SOB/cough/sinus issues. Since then, she has had more frequent palpitations however she also continues to be short of breath. She has also noticed hair loss since renuka COVID-19. EKG today does show 2nd degree AVB however she denies any dizziness. We will obtain a f/u echo. [facility] Cardiology:EKG today does show 2nd degree AVB however she denies any dizziness. We will obtain a f/u echo. [facility] Cardiology:Pt had CO VID-19 in May. She did not need to be hospitalized but had SOB/cough/sinus issues. Since then, she has had more frequent palpitations however she also continues to be short of breath. We will obtain a f/u echo. [facility] Cardiology:Pt had CO VID-19 in May. She [...] receive BiPAP. Will try to assist. Chico iMtchell MD Cardiology:No recurrence. Her ec ho was [...] f/u echo and try an event monitor. [facility] Cardiology follow up :Encouraged weight loss. [facility] Cardiology follow up :Recommended checking UACR. Requesting records from PCP. [facility] Cardiology follow up :BP today: 160/64 P [...] Cardiology Hospital Follow up:No complaints of palpitations. [facility] Follow up:BP today: 152/72 P rior BP: 182/86 (05/22/2015) Her updated medication list for this problem includes: Lisinopril 2.5 Mg Oral Tabs (Lisinopril) ..... Take one pill a day [facility] Follow up:We ight loss advised. [facility] Follow up:The patient is actively using CPAP on a regular basis. She has been benefiting from therapy and should continue use. [facility] Follow up:Pt had an episode of chest discomfort associated with a flushing sensation. She was admitted to [facility] and had an extensive workup including an echo, stress myoview, venous duplex and V/Q scan, all reportedly negative. 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 [facility] Cardiology: H er updated medication list for [...] daily Orders: H olter Monitor 24 Hr ([id number]) C omplete Echo (CPT-[id number]) Chico Mitchell MD office visit: B P [...] on stress. Post stress EF is 54%. [facility] (03/25/2007) C ardiac Cath: Normal right and left heart filling pressures. Normal LV systolic function EF 75%. No evidence of hemodynamically significant fixed obstructive CAD. Normal renal arteries. [facility] (06/08/2008) C HOL: 183 (06/08/2008) LDL: 100 [...] on stress. Post stress EF is 54%. [facility] (03/25/2007) C ardiac Cath: Normal right and left heart filling pressures. Normal LV systolic function EF 75%. No evidence of hemodynamically significant fixed obstructive CAD. Normal renal arteries. [facility] (06/08/2008) C HOL: 183 (06/08/2008) LDL: 100 (06/08/2008) HDL: 67 (06/08/2008) T (06/08/2008) H gb: 15.5 (06/12/2008) HCT: 44.2 (06/12/2008) RBC: 5.14 (06/12/2008) WBC: 9.6 (06/12/2008) B UN: 14 (06/08/2008) Creat: 0.97 (06/08/2008) Glucose: 192 (06/08/2008) N a+: 134 (06/08/2008) K+: 4.4 (06/08/2008) Cl: 100 (06/08/2008) PT: 10.0 (06/08/2008) INR: 1.0 (06/08/2008) E chocardiogram: LVH. EF 65%. Trace PI. Trace TR. [facility] (03/25/2007) Orders: T HYROID PANEL WITH TSH, 3RD GENERATION ([id number]) E CP Commercial ([id number]) Chico Mitchell MD C/O CHEST PAINS: O rders: E KG (CPT-[id number]) C ardiac Cath - GC (*) Chico [...] completed EKG Chico Mitchell MD completed SNOMED-CT: [id number] Physical Exam, Performed: Pulse Exam of Foot Chico Mitchell MD completed EKG Chico Mitchell MD completed SNOMED-CT: [id number] Current Medications Documented Chico Mitchell MD completed SNOMED-CT: [id number] Physical Exam, Performed: Pulse Exam of Foot Chico Mitchell MD completed EKG Chico Mitchell MD completed SNOMED-CT: [id number] Current Medications Documented Chico Mitchell MD completed EKG Chico Mitchell MD completed EKG Chico Mitchell MD completed EKG Chico Mitchell MD completed EKG Chico Mitchell MD completed
--- OUTSIDE RECORDS SUMMARY | 2024-09-12 12:17 | XMS_ITS | Data Portability ---
Author Organization [facility] Address [address] [place] [address] Care Team Providers Care Public Records Researcher Name Role Phone MARCIE PITTMAN Primary Care [...] TIBC + ferritin, serum 2023 025 [email or web address] [facility], [address] [place], [address], 04/19/2024 09:21:56 CMP, serum or plasma 2023 025 [email or web address] [facility], [address], [place], [address], 04/19/2024 09:21:56 CBC w/ auto diff 2023 025 [email or web address] [facility], [address], [address], [place], [address], 04/19/2024 09:21:56 lipid panel, serum 2023 025 [email or web address] [facility], [address], [address], [place], [address], 04/19/2024 09:21:56 HbA1c (hemoglob in A1c), blood 2023 025 [email or web address] [facility], [address], [address], [place], [address], 04/19/2024 09:21:56 HbA1c (hemoglob in A1c), blood 2023 024 [email or web address] In-Office Order, Internal Use Only DO Not Attach Compendium DO Not Attach Compendium, Do Not Delete/merge, [id number] 04/19/2024 09:27:06 TSH + free T4, serum 2023 025 [email or web address] [facility], [address], [address], [place], [address], 04/19/2024 09:21:56 iron + TIBC + ferritin, serum 2023 024 [email or web address] [facility], [address], [address], [place], [address], 05/05/2024 10:38:47 lipid panel, serum 2023 024 [email or web address] [facility], [address], [address], [place], [address], 04/20/2024 09:35:56 CMP, serum or plasma 2023 024 [email or web address] [facility], [address], Am[address], [place], [address], 05/05/2024 10:38:46 CBC w/ auto diff 2023 024 [email or web address] [facility], [address], [address], [place], [address], 05/05/2024 10:38:46 urinalysi s, complete 2023 024 [email or web address] [facility], [address], [address], [place], [address], 05/05/2024 10:38:46 culture, urine 2023 024 [email or web address] [facility], [address], [address], [place], [address], 05/05/2024 10:38:47 HbA1c (hemoglob in A1c), blood 2023 024 [email or web address] [facility], [address], [address], [place], [address], 05/05/2024 10:38:46 TSH + free T4, serum 2023 024 [email or web address] [facility], [address], Am[address], [place], [address], 05/05/2024 10:38:47 CMP, serum or plasma 2023 024 [email or web address] [facility], [address], [address], [place], [address], 02/04/2024 08:03:43 CBC w/ auto diff 2023 024 [email or web address] [facility], [address], [address], [place], [address], 02/04/2024 08:03:43 urinalysi s, complete 2023 024 [email or web address] [facility], [address], [place], [address], 10/14/2023 11:11:55 culture, urine 2023 024 [email or web address] [facility], [address] [place], [address], 09/27/2023 22:09:01 HbA1c (hemoglob in A1c), blood 2023 024 [email or web address] [facility], [address], [place], [address], 02/04/2024 08:03:43 Referral None recorded. Procedures colonosco py procedure (PROC) [address] [facility], [address], [address], [place], [address], 10/11/2023 15:09:19 Surgeries None recorded. Imaging None recorded. Medication Orders OneTouch Verio test strips 2023 024 [facility]55063, [address], [place], [place], [id number], 04/19/2024 09:22:08 glimepiri de 1 mg tablet 2023 024 [facility] #13281, [address], [place], [place], [id number], 04/19/2024 09:03:16 metformin 1,000 mg tablet 2023 024 [facility] #56422, [address], [place], [place], [id number], 03/01/2024 09:51:50 carvedilo l 12.5 mg tablet 2023 024 [facility] #69513, [address], [place], [place], [id number], 04/19/2024 09:02:55 omeprazol e 40 mg capsule,d elayed release 2023 024 [facility] #60226, [address], [place], [place], [id number], 08/25/2023 10:47:01 glimepiri de 1 mg tablet 2023 024 [facility] #90746, [address], [place], [place], [id number], 08/25/2023 10:47:01 metformin 1,000 mg tablet 2023 024 [email or web address] [facility] #72003, [address], [place], [place], [id number], 08/25/2023 23:59:59 carvedilo l 6.25 mg tablet 2023 024 [facility] #42685, [address], [place], [place], [id number], 03/01/2024 09:51:07 Patient TargetsNo targets recorded. Patient Instructions Encounter Date Encounter Id Patient Instructions Last Modified By Organization Details Last Modified Time 03/01/2024 [id number] A healthy lifestyle: care instructions Not available 03/01/2024 09:51:39 04/19/2024 [id number] A healthy lifestyle: care instructions Not available 04/19/2024 09:21:56 Reason for Referral None Reported. Results Created Date Observation Date Name Description Value Unit Range Abnormal Flag Note LastModifiedBy Organization Detail LastModifiedTime 04/19/2004/19/2024 HbA1c (hemo globi n A1c), blood HbA1c 7.7 Not Available In-Office Order Internal Use Only DO Not Attach Compendium DO Not Attach Compendium, Do Not Delete/merge, [id number] 04/19/2024 09:25:23 09/01/1908/30/2024 MAMMO , scree nataly, digit al, bilat eral No observ ation record ed. [email or web address], [place], [address], 09/05/2024 14:58:34 Result Notes None recorded. Problems Name Problem SNOMED Code Status Onset Date Resolution Date Notes Provider Name and Address Organization Details Recorded Time Uncontroll ed type 2 diabetes mellitus 131491751 Active 2023 KAT Atwood Attn: North campos,[address] [facility], [place], [address], [place] [facility] 4 18:45:00 Benign essential hypertensi on 1503772 Active 2023 KAT Atwood Attn: North g,[address] [facility], [place], [address], [place] [facility] 4 18:45:01 Acid reflux 839281087 Active 2023 KAT Atwood Attn: North g,[address] [facility], [place], [address], [place] [facility] 4 18:45:04 Hypothyroi dism 83570225 Active 2023 KAT Atwood Attn: North campos,[address] [facility], [place], [address], [place] [facility] 4 18:45:07 Lower urinary tract symptoms 681136511 Active 2023 KAT Atwood Attn: North g,[address] [facility], [place], [address], [place] [facility] 4 18:45:12 Iron deficiency 14942380 Active 2023 KAT Atwood Attn: North g,[address] [facility], [place], [address], [place] [facility] 4 18:45:18 Long-term drug therapy Active 2023 KAT Atwood Attn: Accountin g,[address] [facility], [place], [address], [place] [facility] 4 18:45:20 Obesity 023116177 Active 2023 KAT Atwood Attn: Accountin g,[address] [facility], [place], [address], [place] [facility] 4 18:46:00 Body mass index 40+ - severely obese 063324139 Active 2023 KAT Atwood Attn: Accountin g,[address] [facility], [place], [address], [place] [facility] 4 18:46:01 History of polyp of colon 439083487 Active 2023 KAT Atwood Attn: Accountin g,[address] [facility], [place], [address], [place] [facility] 4 09:17:31 Cholestero l screening Active 2023 KAT Atwood Attn: Accountin g,[address] [facility], [place], [address], [place] [facility] 4 15:48:47 Degenerati on of lumbar interverte bral disc 54351150 Active degenerati ve of lumbar spine Aravind Stahl [place] null, [place] [facility] 5 15:28:56 Problem Notes None recorded. Procedures Surgical History Date Name Laterality Status Provider Name and Address Organization Details Recorded Time 10/26/19 24 colonoscopy completed Stephani De Jesus LPN [place] [facility] 01/14/2024 10:49:07 Arthroscopic Surgery completed Aravind Stahl [place] [facility] 08/25/2023 15:59:41 Knee Surgery completed Aravind Stahl [place] [facility] 08/25/2023 15:59:49 Breast Surgery completed Aravind Stahl [place] [facility] 08/25/2023 16:01:19 hysterectomy completed Aravind Stahl [place] [facility] 08/25/2023 16:01:36 Imaging Results Imaging Date Name Status LastModified by Organiz ation Details LastModified Time 08/30/2024 MAMMO, screening, digital, bilateral completed [email or web address], [place], [address], 09/05/2024 14:58:34 Procedure Notes None recorded. Medical Equipment None Reported. Allergies Allergen ID Allergen Name Allergen Category Reaction Reaction Severity Criticality Documentation Date Start Date Code Code System Note Provider Name and Address Organization Details Recorded Time 053992 penicilla mine medicatio n Not available Not available Not available 08/25/2023 7975 RxNorm Not Available Not Available Not Available 732103 lisinopri l medicatio n Not available Not available Not available 08/25/2023 68161 RxNorm Not Available Not Available Not Available [...] TAKE 1 TABLET BY MOUTH EVERY DAY 2023 active Not [...] 4 159.39 cm 18 /min 56.9 kg/m2 142503. 53 g 98 % 98 % 110 /min 138 mm[Hg] 68 mm[Hg] Aravind Stahl [place] [facility] 4 10:15:50 Date Recorded Systolic blood pressure Diastolic blood pressure Provider Name and Address Organization Details Last Updated DateTime 08/25/2023 150 mm[Hg] 80 mm[Hg] KAT Atwood Attn: Accounting,[address] [place], [address], [facility] 08/25/2023 10:35:31 Date Recorded Body height Respiratory rate Body mass index (BMI) Body weight Oxygen saturation Oxygen saturation in Arterial blood by Pulse oximetry Heart rate Systolic blood pressure Diastolic blood pressure Provider Name and Address Organization Details Last Updated DateTime 4 159.39 cm 18 /min 56.2 kg/m2 142583. 88 g 96 % 96 % 76 /min 142 mm[Hg] 82 mm[Hg] Aravind Stahl MA [facility] 09:31:57 Date Recorded Systolic blood pressure Diastolic blood pressure Provider Name and Address Organization Details Last Updated DateTime 03/01/2024 150 mm[Hg] 80 mm[Hg] KAT Atwood Attn: Accounting,[address] [place], [address], [facility] 03/07/2024 18:37:30 Date Recorded Body height Body mass index (BMI) Body weight Oxygen saturation Oxygen saturation in Arterial blood by Pulse oximetry Heart rate Systolic blood pressure Diastolic blood pressure Provider Name and Address Organization Details Last Updated DateTime 4 159.39 cm 56.4 kg/m2 913348. 19 g 96 % 96 % 86 /min 148 mm[Hg] 82 mm[Hg] Aravind Stahl MA [facility] 09:07:56 Date Recorded Systolic blood pressure Diastolic blood pressure Provider Name and Address Organization Details Last Updated DateTime 04/19/2024 140 mm[Hg] 80 mm[Hg] KAT Atwood Attn: Accounting,[address] [place], [address], [facility] 04/19/2024 09:21:21 Social History Question Answer Notes LastModified by Organizat ion Details LastModified Time Tobacco Smoking Status Never Smoker Aravind Stahl MA null, [facility] 08/25/2023 10:11:41 Do You Have An Advance [...] Skin Problems N Anemia Y Heart Attack (OK) N Anxiety Disorder N Diabetes Y Muscle, [...] SNOMED-CT Code Diagnosis ICD10 Code Diagnosis Note [id number] KAT Atwood formerly [facility] [address] [place] [address] 08/25/2023 09:44:40 08/26/2023 10:19:28 History of polyp of colon 689399878 Z86.010 refer for colonoscop y that is due; hx of colon polyps Uncontroll ed type 2 diabetes mellitus 805871844 E11.65 due for a1c lab Long-term drug therapy 611443348 Z79.899 routine cmp and cbc due Benign ess ential hypertension 2514233 I10 start coreg 6.25 mg bid for tighter bp control. Lower urin kiko tract symptoms 471768324 R39.9 check UA w/cx Renewal of prescription 314207927 Z76.0 refill on glimeperid e 1mg and metformin 1000mg Acid reflux 927653637 K2 1.9 Rx for omeprazole 40mg daily. Hypothyroidism 15628822 E03.9 stable on levothyrox ine 50mcg daily. [id number] KAT Atwood [facility] - [employer] [address] [place] [address] 03/01/2024 09:09:33 03/01/2024 10:48:09 Body mass index 40+ - severely obese 280757898 Z68.43 BMI is 56.2 Obesity 272784720 E66.8 discussed healthy diet, exercise, controllin g carbohydra meredith and added sugars in the diet Uncontroll ed type 2 diabetes mellitus 953654666 E11.65 8.9% A1c on labs patient has not been following strict diet, she will start to restrict carbs and sugars and have dosing of glimepirid e and metformin as directed and repeat labs again next month. Benign ess ential hypertension 0425201 I10 boost to carvedilol 12.5mg bid. Blood pressure is running 140-150 range today on exam. Acid reflux 233047637 K2 1.9 omeprazole 40mg daily. Stable on medication Hypothyroidism 43060040 E03.9 stable on levothyrox ine 50mcg daily. Next labs due next month History of polyp of colon 754214831 Z86.010 History noted of colon polyp, up-to-date on colonoscop y from October of 2023 Lower urin kiko tract symptoms 562906961 R39.9 check UA w/cx, check urine with culture on next set of labs Long-term drug therapy 540071915 Z79.899 Next labs are due late March Renewal of prescription 534779949 Z76.0 refill on glimeperid e 1mg and metformin 1000mg Iron deficiency 16441613 E61.1 History of iron deficiency Cholesterol screening 27 2956807 Z13.220 Fasting lipid panel due in March heal th examination 507137226 Z00.01 Annual wellness exam complete [id number] KAT Atwood [facility] [place] [address] [place] [address] 04/19/2024 08:58:15 04/19/2024 13:14:28 Benign essential hypertension 7743757 I10 Pressure is stable but borderline at 1 40/80 now on higher dose carvedilol 12.5mg bid. Long-term drug therapy 595017300 Z79.899 CBC and CMP due in October Hypothyroidism 59240774 E03.9 stable on levothyrox ine 50mcg daily. Repeat thyroid panel in October Uncontrol ed type 2 diabetes mellitus 324960823 E11.65 7.7% A1c on check today in the office which is much improved from last labs. Patient does need a refill on One-Touch meter and supplies. We will repeat an A1c in October. Acid reflux 814309711 K2 1.9 omeprazole 40mg daily. Stable on medication Iron deficiency 76010078 E61.1 History of iron deficiency Body mass index 40+ - severely obese 033568721 Z68.43 BMI is 56.2 Obesity 952103167 E66.9 discussed healthy diet, exercise, controllin g carbohydra meredith and added sugars in the diet History of polyp of colon 319354302 Z86.0100 6 polyps on october 2023, repeat 3 years. Cholesterol screening 27 4645518 Z13.220 Fasting lipids due again in October Health Concerns Section Related Observation LastModified by Organization Detai ls LastModified Time None Recorded Concern Status LastModified by Organization Details LastModified Time None Recorded Advance Directives Directive N: Payers Encounter Date Sequence Insurance Name Policy Number Policy Mir Covered Member ID Mir Member ID Guarantor Name 08/25/2023 1 [facility]: [facility] [employer] [employer] (PPO) 106 Mona Clark Dona [id number] Mona Dona 03/01/2024 1 [facility]: [facility] [employer] [employer] [employer] (PPO) 106 Mona S Dona [id number] Mona Dona 04/19/2024 1 [facility]: [facility] [employer] [employer] (PPO) 106 Mona S Dona [id number] Mona Dona Notes Date Note Type Note [...] ( lbs) KAT Atwood Attn: Accounting, [address] [place], [address], [facility] 08/26/2023 00:07:18 03/01/20 24 text/htm l DiabetesReported [...] ( lbs) KAT Atwood Attn: Accounting, [address], [place], [address], [facility] 03/07/2024 18:46:42 04/19/20 24 text/htm l DiabetesReported [...] ( lbs) KAT Atwood Attn: Accounting, [address] [place], [address], [facility] - [facility] 05/05/2024 15:49:04 OBGyn Episode No OBEpisode recorded.
--- OUTSIDE RECORDS SUMMARY | 2024-09-12 12:18 | XMS_ITS | Clinical Summary ---
Author Organization [facility] Address [address] [place] [address] Care Team Providers Care Retail Greeter Name Role Phone Marisabel Flores Primary Care Provider [phone] Allergies Active Allergy Reactions Criticality Noted Date [...] Vaccine ( - 2023-2 5 season) 2024 Dexa Scan (General) 2024 Pneumococcal Vaccine: [...] this topic Insurance [facility] Care Teams Retail Greeter Relationship Specialty Start Date End Date Marisabel Flores PA [address] [place] [address] PCP - General PHYSICIAN HOOP 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
== END 2024-09-12 10:49 | disposition home or self-care (01) ==
LOC: ANHIMG 10:50
PROVIDERS: PCP Physician Assistant; Visit Provider Obstetrics & Gynecology
DX: R92.8 Other abnormal and inconclusive findings on diagnostic imaging of breast (principal)
CPT/HCPCS: 77061; 77065; G0279

== ENCOUNTER 2025-04-12 12:58 | Outpatient (CLI) | payer BC, SELFPAY ==
--- OUTSIDE RECORDS SUMMARY | 2025-03-21 03:30 | XMS_ITS | Continuity of Care Document ---
Author Organization [facility] Address [address] [place] [address] Phone Care Team Providers Care Lead Atg Developer Name Role Phone Paula MORA, FACC, FSCChico PEARSON Unavailable Unava ilable Allergies, Adverse Reactions, Alerts Substance Reaction Status Criticality Penicillins Active No Information lisinopril Active No Information levofloxacin Active No Information Medications Medication Instructions Dosage Effective Dates (start - stop) Status Comments amlodipine 10 mg tablet take 1 tablet by oral route every day 10 MG - Active hydrochlorothiazide 25 mg tablet take 1 tablet by oral route every day 25 MG - Active omeprazole 40 mg capsule,delayed release take 1 pill a day - Active albuterol sulfate HFA 90 mcg/actuation aerosol inhaler INHALE 2 PUFFS BY MOUTH EVERY 4 HOURS NEEDED - Active glimepiride 1 mg tablet TAKE 1 TABLET TW ICE DAILY BY MOUTH WITH MEALS - Active estradiol 1 mg tablet TAKE 1 TABLET BY MOUTH TWICE DAILY - Active levothyroxine 50 mcg tablet TAKE 1 TABLE T BY MOUTH EVERY DAY - Active metformin 1,000 mg tablet TAKE 1 TABLET TWICE DAILY WITH MEALS - Active epinephrine 0.3 mg/0.3 mL injection, auto-injector use as directed - Active Procedures Procedure Date TTE W/DOPPLER, COMPLETE OFFICE/OUTPATIENT VISIT, NEW ELECTROCARDIOGRAM, COMPLETE Advance Directives Directive Yes / No Effective Date File Name No Information Encounters Encounter Description Practice Location Reason(s) For Visit Diagnoses Date Provider Providers Copied on Encounter [facility], [address] [place] [address], [id number] , tel: [phone] [facility] No Information - 5 Paula Johnson [address] , [address] [place] [address], [id number] , [place]. tel: [phone] Referring Provider: Claus Collins, [address] [place] [address], [address]. tel:[phone] [facility], [address] [place] [address], [id number] , tel: [phone] [facility] No Information 5 Paula Johnson [address] , [address] [place] [address], [id number] , . tel: [phone] Referring Provider: Claus Collins, [address] [place] [address], [address]. tel:[phone] OFFICE/OUTPA TIENT VISIT, [facility], [address] [place] [address], [id number] , tel: [phone] [facility] Ignacio cardiology examination (chief complaint)Br adyarrhythmi as (chief complaint) BradycardiaVertigo PalpitationsHTNSle ep apneaSystolic murmur Sep-0 - 5 Paula Johnson [address] , [address] [place] [address], [id number] , [place]. tel: [phone] Referring Provider: Claus Collins, [address] [place] [address], [address]. tel:[phone] [facility], [address] [place] [address], [id number] , tel: [phone] [facility] Ignacio No Information Sep-0 - 5 Paula Golden. [address] , [address] [place] [address], [id number] , [place]. tel: [phone] [facility], [address] [place] [address] [place], [place], [id number] , [place] tel: [phone] [facility] Atrioventricular block, second degreeShortness of breath 5 Paula Golden. [address] , [address], [place], [place], [id number] , [place]. tel: [phone] Family History Family Member Type Diagnosis Age At Onset Father Problem (finding) Diabetes mellitus Mother Problem (finding) Renal disease Sister Problem (finding) Cardiac arrhythmias Maternal grandmother Problem (finding) Cancer Paternal grandmother Problem (finding) Cancer Father Problem (finding) Stroke Sister Problem (finding) Diabetes mellitus Father Problem (finding) Cardiac arrhythmias Mother Problem (finding) Cardiac arrhythmias Sister Problem (finding) Cancer Sister Problem (finding) Renal disease Father Problem (finding) Hypertension Sister Problem (finding) Hypertension Mother Problem (finding) Diabetes mellitus Father Problem (finding) Cancer Father Problem (finding) High cholesterol Mother Problem (finding) Hypertension Sister Problem (finding) High cholesterol Payers Payer name Insurance type Covered alliance party ID Authoriza tion(s) No Information Social History Type Description Quantity Date Captured Comments Sex Female Smoking Status No Information Chief Complaint And Reason For Visit No Information Reason For Referral Reason For Referral No Information Plan Of Treatment Date Type Action Status Appointment Mona Carcamo BOOKED Future Order: Radiology Order Ec hocardiogram, Complete Transthoracic ([id number]), Ordered on: Ordered Future Order: Radiology Order T Monitor 14-30 Days ([id number]), Ordered on: Ordered History Of Present Illness Encounter Date Complaint History Of Prese nt Illness cardiology examination Bradyarrhythmias The patient vis its the office to be evaluated for a slow heart rate (bradyarrhythmia). The patient was diagnosed by Electrocardiogram. The patient has the following risk factors for bradyarrhythmias: Obesity, HTN, HLD, BRIAN,. The patient initially presented with dizziness, fatigue and palpitations. These symptoms occur at rest. Functional Status Date Functional Assessmen t No Information Instructions Date Instruction Additional Infor mation No Information Assessments Type Assessment Date No Information Patient Care Teams Name Effective Dates (start - stop) Status Members No Information
--- NOTE | ~2025-04-12 | MM_ITS ---
EXAMINATION: MM diagnostic kaleb RT w teja INDICATION: 65-year old female; BI-RADS 3, follow-up probably benign calcifications right breast. COMPARISON: 09/12/2024 through 08/13/2020 TECHNIQUE: Digital breast tomosynthesis True lateral view and magnification CC and ML views of Right breast were obtained with computer-aided detection to assist in interpretation of the study. FINDINGS: There are scattered areas of fibroglandular density. The 2 clusters of calcifications in the upper central right breast reidentified are unchanged. These calcifications are coarse and benign-appearing. No new masses, suspicious calcifications or areas of architectural distortion seen in the rest the breasts. IMPRESSION: Right breast benign calcifications. No mammographic evidence of malignancy within the right breast. RECOMMENDATION: Diagnostic bilateral mammogram in 6 months. BI-RADS 2, BENIGN Reviewed, dictated and finalized at location [facility] IMPRESSION: Right breast benign calcifications. No mammographic evidence of malignancy with in the right breast. RECOMMENDATION: Diagnostic bilateral mammogram in 6 months. BI-RADS 2, BENIGN
--- OUTSIDE RECORDS SUMMARY | 2025-04-12 19:50 | XMS_ITS | Data Portability ---
[facility] Organization [facility] Address [address] [place] [address] Care Team Providers Care Child Care Supervisor Name Role Phone MARCIE PITTMAN Primary Care Provider Unavailab le Assessment Encounter Date Assessment Date Assessment LastModified by Organization Details LastModified Time 08/25/2023 08/25/2023 Mammogram up to date and normal. Not available 08/25/2023 10:30:35 03/01/2024 03/01/2024 Mammogram up to date and normal. Not available 03/01/2024 09:38:21 04/19/2024 04/19/2024 Mammogram up to date and normal. Not available 04/19/2024 09:14:07 10/18/2024 10/18/2024 Mammogram up to date and normal. Not available 10/18/2024 08:58:37 Plan of Treatment Reminders Order Date Submit Date Provider Last Modified By Organization Details Last Modified Time Details Appointments ANY 15 2024 07:30A M KAT Atwood Not available Not available Not available Lab iron + TIBC + ferritin, serum 2024 025 [email or web address] [facility], [address], [place], [address], 10/18/2024 09:10:41 HbA1c (hemoglob in A1c), blood 2024 025 [email or web address] [facility], [address], [place], [address], 10/18/2024 09:10:41 microalbu min/creat inine, mass ratio, urine 2024 [email or web address] [facility], [address], [address], [place], [address], 10/18/2024 09:10:41 CMP, serum or plasma 2024 [email or web address] [facility], [address], [address], [place], [address], 10/18/2024 09:10:41 CBC w/ auto diff 2024 [email or web address] [facility], [address], [address], [place], [address], 10/18/2024 09:10:41 urinalysi s, complete 2024 [email or web address] [facility], [address], [address], [place], [address], 10/18/2024 09:10:41 culture, urine 2024 [email or web address] [facility], [address], [address], [place], [address], 10/18/2024 09:10:41 lipid panel, serum 2024 [email or web address] [facility], [address], [address], [place], [address], 10/18/2024 09:10:41 TSH + free T4, serum 2024 [email or web address] [facility], [address], [address], [place], [address], 10/18/2024 09:10:41 iron + TIBC + ferritin, serum 2023 025 [email or web address] [facility], [address], [address], [place], [address], 03/05/2025 11:03:36 CMP, serum or plasma 2023 025 [email or web address] [facility], [address], [address], [place], [address], 03/05/2025 11:03:36 CBC w/ auto diff 2023 025 [email or web address] [facility], [address], [address], [place], [address], 03/05/2025 11:03:36 lipid panel, serum 2023 025 [email or web address] [facility], [address], [address], [place], [address], 03/05/2025 11:03:37 HbA1c (hemoglob in A1c), blood 2023 025 [email or web address] [facility], [address], [address], [place], [address], 03/05/2025 11:03:36 HbA1c (hemoglob in A1c), blood 2023 024 [email or web address] In-Office Order, Internal Use Only DO Not Attach Compendium DO Not Attach Compendium, Do Not Delete/merge, [id number] 04/19/2024 09:27:06 TSH + free T4, serum 2023 025 [email or web address] [facility], [address], [address], [place], [address], 03/05/2025 11:03:37 iron + TIBC + ferritin, serum 2023 024 [email or web address] [facility], [address], [address], [place], [address], 05/05/2024 10:38:47 lipid panel, serum 2023 024 BRAIN [facility], [address], [address], [place], [address], 04/20/2024 09:35:56 CMP, serum or plasma 2023 024 [email or web address] [facility], [address], [address], [place], [address], 05/05/2024 10:38:46 CBC w/ auto diff 2023 024 [email or web address] [facility], [address], [address], [place], [address], 05/05/2024 10:38:46 urinalysi s, complete 2023 024 [email or web address] [facility], [address], [address], [place], [address], 05/05/2024 10:38:46 culture, urine 2023 024 [email or web address] [facility], [address], [address], [place], [address], 05/05/2024 10:38:47 HbA1c (hemoglob in A1c), blood 2023 024 [email or web address] [facility], [address], [address], [place], [address], 05/05/2024 10:38:46 TSH + free T4, serum 2023 024 [email or web address] [facility], [address], [address], [place], [address], 05/05/2024 10:38:47 CMP, serum or plasma 2023 024 [email or web address] [facility], [address], [place], [address], 02/04/2024 08:03:43 CBC w/ auto diff 2023 024 [email or web address] [facility], [facility] [address], [address], [place], [address], 02/04/2024 08:03:43 urinalysi s, complete 2023 024 [email or web address] [facility] [address] [facility], [address], [place], [address], 10/14/2023 11:11:55 culture, urine 2023 024 [email or web address] [facility], [facility] [address], [address], [place], [address], 09/27/2023 22:09:01 HbA1c (hemoglob in A1c), blood 2023 024 [email or web address] [facility], [facility] [address], [address], [place], [address], 02/04/2024 08:03:43 Referral None recorded. Procedures colonosco py procedure (PROC) [address] [facility], [address], [address], [place], [address], 10/11/2023 15:09:19 Surgeries None recorded. Imaging None recorded. Medication Orders OneTouch Verio test strips 2023 024 BRAIN [facility], [address], [place], [place], [id number], 04/19/2024 09:22:08 glimepiri de 1 mg tablet 2023 024 [email or web address] [facility] #43321, [address], [place], [place], [id number], 04/19/2024 09:03:16 metformin 1,000 mg tablet 2023 024 [facility] #73787, [address], [place], [place], [id number], 03/01/2024 09:51:50 carvedilo l 12.5 mg tablet 2023 024 [email or web address] [facility] #31874, [address], [place], [place], [id number], 04/19/2024 09:02:55 omeprazol e 40 mg capsule,d elayed release 2023 024 [facility] #39587, [address], [place], [place], [id number], 08/25/2023 10:47:01 glimepiri de 1 mg tablet 2023 024 [facility] #00485, [address], [place], [place], [id number], 08/25/2023 10:47:01 metformin 1,000 mg tablet 2023 024 [email or web address] [facility] #97973, [address], [place], [place], [id number], 08/25/2023 23:59:59 carvedilo l 6.25 mg tablet 2023 024 [facility] #15893, [address], [id number], 03/01/2024 09:51:07 Patient TargetsNo targets recorded. Patient Instructions Encounter Date Encounter Id Patient Instructions Last Modified By Organization Details Last Modified Time 03/01/2024 [id number] A healthy lifestyle: care instructions Not available 03/01/2024 09:51:39 04/19/2024 [id number] A healthy lifestyle: care instructions Not available 04/19/2024 09:21:56 10/18/2024 [id number] A healthy lifestyle: care instructions [email or web address] Not available 10/18/2024 09:10:41 Reason for Referral None Reported. Results Created Date Observation Date Name Description Value Unit Range Abnormal Flag Note LastModifiedBy Organization Detail LastModifiedTime 04/19/20 24 04/19/2024 HbA1c (hemo globi n A1c), blood HbA1c 7.7 Not Available In-Office Order Internal Use Only DO Not Attach Compendium DO Not Attach Compendium, Do Not Delete/merge, [id number] 04/19/2024 09:25:23 09/01/1908/30/2024 MAMMO , scree nataly, digit al, bilat eral No observ ation record ed. [email or web address] [address] [place] [address], [address], 09/05/2024 14:58:34 09/13/19 25 09/12/2024 MAMMO , diagn ostic , digit al, unila teral No observ ation record ed. [email or web address] [address], [address], 09/12/2024 13:56:51 Result Notes None recorded. Problems Name Problem SNOMED Code Status Onset Date Resolution Date Notes Provider Name and Address Organization Details Recorded Time Degenerati on of lumbar interverte bral disc 88565023 Active degenerati ve of lumbar spine Aravind Stahl MA null, [place] - [place] 5 15:28:56 Uncontroll ed type 2 diabetes mellitus 332967247 Active 2023 KAT Atwood Attn: [place],[address] [place], [address], [facility] 4 18:45:00 Benign essential hypertensi on 7017438 Active 2023 KAT Atwood Attn: [place],[address] [place], [address], [place] [facility] 4 18:45:01 Acid reflux 500268207 Active 2023 KAT Atwood Attn: Accountin g,[address] [place], [place], [address] [place] [address] 2, [place] [facility] 4 18:45:04 Hypothyroi dism 34054358 Active 2023 KAT Atwood Attn: Accountin g,[address] [place], [place], [address] [place] [address] 2, [place] [facility] 4 18:45:07 Lower urinary tract symptoms 917052779 Active 2023 KAT Atwood Attn: Accountin g,[address] [place], [place], [address] [place] [address], [place] [facility] 18:45:12 Iron deficiency 27167174 Active 2023 KAT Atwood Attn: Accountin g,[address] [place], [place], [address] [place] [address] 2, [place] [facility] 4 18:45:18 Long-term drug therapy Active 2023 KAT Atwood Attn: Accountin g,[address] [place], [place], [address] [place] [address], [place] - [facility] 4 18:45:20 Obesity 749455569 Active 2023 KAT Atwood Attn: Accountin g,[address] [place], [address] [place] [address] 2, [place] [facility] 4 18:46:00 Body mass index 40+ - severely obese 533222794 Active 2023 KAT Atwood Attn: Accountin g,[address] [place], [place], [address] [place] [address] 2, [place] - [facility] 4 18:46:01 History of polyp of colon 863411829 Active 2023 KAT Atwood Attn: Accountin g,[address] [place], [address], [place] - [facility] 4 09:17:31 Cholestero l screening Active 2023 KAT Atwood Attn: [place],[address] [facility], [place], [address], [place] - [facility] 4 15:48:47 Obstructiv e sleep apnea syndrome 41227904 Active 2024 KAT Atwood Attn: North g,[address] [facility], [place], [address], [place] - [facility] 5 09:12:37 Type 2 diabetes mellitus 54680054 Active 2024 KAT Atwood Attn: North g,[address] [facility], [place], [address], [place] - [facility] 5 02:05:05 Problem Notes None recorded. Procedures Surgical History Date Name Laterality Status Provider Name and Address Organization Details Recorded Time 10/26/19 24 colonoscopy completed Stephani De Jesus LPN [place] [facility] 01/14/2024 10:49:07 Arthroscopic Surgery completed Aravind Stahl MA [place] 08/25/2023 15:59:41 Knee Surgery completed Aravind Stahl MA [place] 08/25/2023 15:59:49 Breast Surgery completed Aravind Stahl MA [place] [facility] 08/25/2023 16:01:19 hysterectomy completed Aravind Stahl MA [place] 08/25/2023 16:01:36 Imaging Results None recorded. Procedure Notes None recorded. Medical Equipment None Reported. Allergies Allergen ID Allergen Name Allergen Category Reaction Reaction Severity Criticality Documentation Date Start Date Code Code System Note Provider Name and Address Organization Details Recorded Time 961857 penicilla mine medicatio n Not available Not available Not available 08/25/2023 7975 RxNorm KAYKAY [place], [place] - [facility] 4 10:07:12 167532 lisinopri l medicatio n Not available Not available Not available 08/25/2023 82083 RxNorm Aravind Stahl [place] null, [place] - [facility] 4 10:07:16 297042 Product containin g penicilli n (product) medicatio n Not available Not available Not available 03/29/2025 62744 8001 SNOMED Not Available brain - External Data Service - prod 5 10:00:10 082676 Levaquin medicatio n Not available Not available Not available 03/29/2025 46382 2 RxNorm Not Available brain - External Data Service - prod 5 10:00:10 318113 Iodinated contrast media (substanc e) medicatio n anaphylax is severe Not available 03/29/2025 90460 2004 SNOMED Not Available brain - External Data Service - prod 5 10:00:10 795068 egg extract food,medi cation anaphylax is severe Not available 03/29/2025 99084 15 RxNorm Not Available brain - External Data Service - prod 5 10:00:10 594810 Betadine medicatio n Not available Not available Not available 03/29/2025 93770 0 RxNorm Not Available brain - External Data Service - prod 5 10:00:10 689422 iodine medicatio n hives Not available Not available 03/29/20252020 5933 RxNorm Not Available brain - External Data Service - prod 10:16:36 103830 levofloxa marlen medicatio n hives swelling Not available Not available Not available 03/29/20252020 11218 RxNorm Not Available brain - External Data Service - prod 10:16:36 Medications Name Sig Start Date Stop Date Status Note LastModified by Organization Details LastModified Time promethazin e-DM 6.25 mg-15 mg/5 mL oral syrup TAKE 5 ML BY MOUTH EVERY 6 HOURS NEEDED 03/01 completed Not Available Not Available Not Available carvedilol 6.25 mg tablet TAKE 1 TABLET BY MOUTH TWICE DAILY 03/01 completed Not Available Not Available Not Available carvedilol 12.5 mg tablet TAKE 1 TABLET BY MOUTH TWICE DAILY 2024 active Not Available Not Available Not Avai lable clindamycin HCl 300 mg capsule TAKE ONE CAPSULE BY MOUTH EVERY 8 HOURS 03/01 completed Not Available Not Available Not Available azithromyci n 250 mg tablet 09/26 completed Not Available Not Available Not Available benzonatate 200 mg capsule TAKE 1 CAPSULE BY MOUTH THREE TIMES DAILY FOR COUGH 03/01 completed Not Available Not Available Not Available metronidazo le 500 mg tablet TAKE 1 TABLET BY MOUTH EVERY 8 HOURS 03/01 completed Not Available Not Available Not Available acetaminoph en 300 mg-codeine 30 mg tablet TAKE 1 TABLET BY MOUTH FOUR TIMES DAILY NEEDED 03/01 completed Not Available Not Available Not Available ciprofloxac in 500 mg tablet TAKE 1 TABLET BY MOUTH EVERY 12 HOURS 03/01 completed Not Available Not Available Not Available omeprazole 40 mg capsule,del ayed release TAKE 1 CAPSULE BY MOUTH EVERY DAY active Not Available Not Available No t Available glimepiride 1 mg tablet TAKE 1 TABLET TWICE DAILY BY MOUTH WITH MEALS active Not Available Not Available No t Available estradiol 1 mg tablet TAKE 1 TABLET BY MOUTH TWICE DAILY active Not Available Not Available No t Available OneTouch Ultra Test strips USE TO CHECK BLOOD GLUCOSE TWICE DAILY active Not Available Not Available No t Available benzonatate 100 mg capsule TAKE 1 CAPSULE BY MOUTH EVERY 8 HOURS NEEDED 03/01 completed Not Available Not Available Not Available levothyroxi ne 50 mcg tablet TAKE 1 TABLET BY MOUTH EVERY DAY 2024 active Not Available Not Available Not Avai lable metformin 1,000 mg tablet TAKE 1 TABLET BY MOUTH TWICE DAILY WITH MEALS 2024 active Not Available Not Available Not Avai lable epinephrine 0.3 mg/0.3 mL injection, auto-inject or ADMINISTE R 0.3 ML IN THE MUSCLE 1 TIME NEEDED active Not Available Not Available No t Available estradiol 0.01% (0.1 mg/gram) vaginal cream Insert by vaginal route. 08/24 completed Not Available Not Available Not Available albuterol sulfate HFA 90 mcg/actuati on aerosol inhaler INHALE 2 PUFFS BY MOUTH [...] Not Available No t Available albuterol 90 mcg-budeson oracio 80 mcg/actuati on HFA aerosol inhaler Inhale by inhalatio n route. 08/24 completed Not Available Not Available Not Available Vitals Date Recorded Systolic And Diastolic Provider Name and Address Organization Details Last Updated DateTime 08/25/2023 150/80 mm[Hg] KAT Atwood Attn: [address]ing,[address] [place], [address], [facility] 08/25/2023 10:35:31 Date Recorded Body height Respiratory rate Body mass index (BMI) Body weight Oxygen saturation Oxygen saturation in Arterial blood by Pulse oximetry Heart rate Systolic And Diastolic Provider Name and Address Organization Details Last Updated DateTime 4 159.39 cm 18 /min 56.9 kg/m2 942011. 53 g 98 % 98 % 110 /min 138/68 mm[Hg] Aravind Stahl MA [facility] 4 10:15:50 Date Recorded Systolic And Diastolic Provider Name and Address Organization Details Last Updated DateTime 10/18/2024 160/80 mm[Hg] KAT Atwood Attn: [address]ing,[address] [place], [address], [facility] 10/18/2024 09:12:02 Date Recorded Body height Body mass index (BMI) Body weight Respiratory rate Heart rate Oxygen saturation Oxygen saturation in Arterial blood by Pulse oximetry Systolic And Diastolic Provider Name and Address Organization Details Last Updated DateTime 5 159.39 cm 56.4 kg/m2 682802. 19 g 20 /min 102 /min 94 % 94 % 178/92 mm[Hg] Cheryl Cain [facility] 5 08:52:15 Date Recorded Systolic And Diastolic Provider Name and Address Organization Details Last Updated DateTime 03/01/2024 150/80 mm[Hg] KAT Atwood Attn: Accounting,[address] [place], [address], [facility] 03/07/2024 18:37:30 Date Recorded Body height Respiratory rate Body mass index (BMI) Body weight Oxygen saturation Oxygen saturation in Arterial blood by Pulse oximetry Heart rate Systolic And Diastolic Provider Name and Address Organization Details Last Updated DateTime 4 159.39 cm 18 /min 56.2 kg/m2 811224. 88 g 96 % 96 % 76 /min 142/82 mm[Hg] Aravind Stahl MA [facility] 09:31:57 Date Recorded Systolic And Diastolic Provider Name and Address Organization Details Last Updated DateTime 04/19/2024 140/80 mm[Hg] KAT Atwood Attn: Accounting,[address] [place], [address], [facility] 04/19/2024 09:21:21 Date Recorded Body height Body mass index (BMI) Body weight Oxygen saturation Oxygen saturation in Arterial blood by Pulse oximetry Heart rate Systolic And Diastolic Provider Name and Address Organization Details Last Updated DateTime 159.39 cm 56.4 kg/m2 489400. 19 g 96 % 96 % 86 /min 148/82 mm[Hg] Aravind Stahl MA [facility] 09:07:56 Social History Question Answer Notes LastModified by Organizat ion Details LastModified Time Tobacco Smoking Status Never Smoker Aravind Stahl MA null, [facility] 08/25/2023 10:11:41 Do You Have An Advance Directive? No Information n ot available 03/01/2024 Are You Blind Or Do You Have [...] Date Of Your Most Recent Tobacco Screening? 10/18/2024 [email or web address] Information not available 10/18/2024 What Is Your Relationship Status? Information not available 04/19/2024 Do You Use Your Seat Belt Or Car Seat Routinely? Yes Information not available 08/25/2023 Do You Have Smoke And Carbon Monoxide Detectors In Your Home? Yes Information not available 08/25/2023 Do You Use Sunscreen Routinely? No Information not available 08/25/2023 Has Tobacco Cessation Counseling Been Provided? No Information not available 08/25/2023 Sex: Female Functional Status Question Answer Note LastModified by Organizat ion Details LastModified Time Do you use any illicit or recreational drugs? No Information not available 08/25/2023 Do you or have you ever used any other forms of tobacco or nicotine? No Information not available 08/25/2023 What is your level of alcohol consumption? None Information not available 08/25/2023 Are you able to care for yourself independently? Yes Information not available 08/25/2023 What is your exercise level? None Information not available 08/25/2023 Mental Status None recorded. Family History Relationship Description Onset Age of this Age Resolved Age Notes LastModified by Organization Details LastModified Time Father Harmful pattern of use of alcohol [email or web address] Not available 2023 16:02:09 Father Cerebrovascu lar accident [email or web address] Not available 16:40:12 Father Diabetes mellitus [email or web address] Not available 2023 16:40:31 Father Heart disease [email or web address] Not available 2023 16:40:52 Father Hypertensive disorder tcarterma Not available 2023 16:41:08 Father Malignant neoplasm of lung tcarterma Not available 2023 16:41:48 [...] Response Coronary Artery Disease N Other N Atrial Fibrillation N High Blood Pressure Y Thyroid Problems N Kidney or Bladder Problems Y Depression N COPD N Blood Clots N GI Problems Y Skin Problems N Anemia Y Heart Attack (ID) N Diabetes Y Anxiety Disorder N Muscle, Joint, or Bone Problems N Seizures/Epilepsy Y Acid Reflux (GERD) Y Cancer N Stroke N Allergies Y Asthma N High Cholesterol N Hepatitis N Liver Disease N Headaches N Osteoporosis N Heart Failure N Gynecological History Statement/Question Response Menses Monthly N Current Control Method Menopause Obstetrics History GPAL:G 2 P 2 0 0 2 Type Value Multiple Births 0 Full Term 2 Induced 0 Spontaneous 0 Premature 0 Living 2 Ectopics 0 Total 2 Past Encounters Encounter ID Performer Location Encounter Start Date Encounter Closed Date Diagnosis/Indication Diagnosis SNOMED-CT Code Diagnosis ICD10 Code Diagnosis IMO Codes Diagnosis Note [id number] Claus Collins MD [facility] [address] [place] [address] 08/25/2023 09:44:40 08/26/2023 10:19:28 History of polyp of colon 240956970 Z86.010 refer for colonoscop y that is due; hx of colon polyps Uncontroll ed type 2 diabetes mellitus 454778791 E11.65 due for a1c lab Long-term drug therapy 996975450 Z79.899 routine cmp and cbc due Benign ess ential hypertension 0959268 I10 start coreg 6.25 mg bid for tighter bp control. Lower urin kiko tract symptoms 440014120 R39.9 check UA w/cx Renewal of prescription 620016472 Z76.0 refill on glimeperid e 1mg and metformin 1000mg Acid reflux 190556652 K2 1.9 Rx for omeprazole 40mg daily. Hypothyroidism 73929697 E03.9 stable on levothyrox ine 50mcg daily. [id number] Claus Collins MD [facility] [place] [address] [place] [address] 03/01/2024 09:09:33 03/01/2024 10:48:09 Body mass index 40+ - severely obese 838375843 Z68.43 BMI is 56.2 Obesity 356524361 E66.8 discussed healthy diet, exercise, controllin g carbohydra meredith and added sugars in the diet Uncontroll ed type 2 diabetes mellitus 504653873 E11.65 8.9% A1c on labs patient has not been following strict diet, she will start to restrict carbs and sugars and have dosing of glimepirid e and metformin as directed and repeat labs again next month. Benign ess ential hypertension 4910013 I10 boost to carvedilol 12.5mg bid. Blood pressure is running 140-150 range today on exam. Acid reflux 615986818 K2 1.9 omeprazole 40mg daily. Stable on medication Hypothyroidism 46849598 E03.9 stable on levothyrox ine 50mcg daily. Next labs due next month History of polyp of colon 428877915 Z86.010 History noted of colon polyp, up-to-date on colonoscop y from October of 2023 Lower urin kiko tract symptoms 428558697 R39.9 check UA w/cx, check urine with culture on next set of labs Long-term drug therapy 350889684 Z79.899 Next labs are due late March Renewal of prescription 144350912 Z76.0 refill on glimeperid e 1mg and metformin 1000mg Iron deficiency 40364517 E61.1 History of iron deficiency Cholesterol screening 27 7977856 Z13.220 Fasting lipid panel due in March th examination 807076326 Z00.01 Annual wellness exam complete [id number] Claus Collins MD [facility] [address] [place] [address] 04/19/2024 08:58:15 04/19/2024 13:14:28 Benign essential hypertension 6786715 I10 Pressure is stable but borderline at 1 40/80 now on higher dose carvedilol 12.5mg bid. Long-term drug therapy 604198398 Z79.899 CBC and CMP due in October Hypothyroidism 73065633 E03.9 stable on levothyrox ine 50mcg daily. Repeat thyroid panel in October Uncontrol ed type 2 diabetes mellitus 351380377 E11.65 7.7% A1c on check today in the office which is much improved from last labs. Patient does need a refill on One-Touch meter and supplies. We will repeat an A1c in October. Acid reflux 973927083 K2 1.9 omeprazole 40mg daily. Stable on medication Iron deficiency 85232667 E61.1 History of iron deficiency Body mass index 40+ - severely obese 970325621 Z68.43 BMI is 56.2 Obesity 400422555 E66.9 discussed healthy diet, exercise, controllin g carbohydra meredith and added sugars in the diet History of polyp of colon 173729115 Z86.0100 6 polyps on october 2023, repeat 3 years. Cholesterol screening 27 9547797 Z13.220 Fasting lipids due again in October [id number] Claus Collins MD [facility] [address] [place] [address] 10/18/2024 08:42:41 10/18/2024 09:13:35 Obese class III [id number] E66.813 [id number] BMI is 56.2 Benign ess ential hypertension 9623949 I10 Pressure is elevated today 160/82. Patient is to be on carvedilol 12.5 mg twice daily but has not had her medication today Acid reflux 823151310 K2 1.9 omeprazole 40mg daily. Stable on medication Hypothyroidism 35198181 E03.9 stable on levothyrox ine 50mcg daily. Labs are all stable repeat in April Lower urin kiko tract symptoms 906663416 R39.9 check UA w/cx, check urine with culture on next set of labs Iron deficiency 47186088 E61.1 History of iron deficiency , follow iron studies Long-term drug therapy 311314252 Z79.899 CBC and CMP due in April Cholesterol screening 27 6362353 Z13.220 Current lipid panel is in normal range repeat fasting in April History of polyp of colon 258062179 Z86.0100 [id number] History noted of colon polyp, up-to-date on colonoscop y from October of 2023 Body mass index 40+ - severely obese 105870976 Z68.43 BMI is 56.2 Type 2 shahzad betes mellitus 36084321 E11.9 Z79.4 [id number] 6.7% A1c on recent labs. Continue glimepirid e 1 mg twice daily and metformin a 1000 mg twice daily. Next set of labs due in April Obstructiv e sleep apnea syndrome 40852670 G47.33 [id number] pt is not using cpap right now because of toleration issues. she must get that in use again. This is contributi ng to her hypertensi on Health Concerns Section Related Observation LastModified by Organization Detai ls LastModified Time None Recorded Concern Status LastModified by Organization Details LastModified Time None Recorded Advance Directives Directive N: Payers Insurance Date Sequence Insurance Name Policy Number Policy Mir Covered Member ID Mir Member ID Guarantor Name 11/06/2024 1 [place] 106 Mona S Dona [id number] Mona Urbinan 08/25/2023 1 *SELF PAY* Ri sinai Carcamo Notes Date Note Type Note Provider Name and Address Organization Details Recorded Time 08/25/19 24 text/htm l HypertensionReported by PatientHPIFor onset/timing, patient reportsworse. For aggravating factors, patient reportsworse with activityandweight change. For severity, patient reportsmild. For duration, patient reportshas noted for years. For alleviating factors, patient reportsmedication. For associated symptoms, patient reportsno shortness of breath,no fatigue,no palpitations,no decline in exercise capacity, andno snoring. DiabetesReported by PatientHPIFor control, patient reportsworsened since last visitbut reportstreated with diet and oral medications,hemoglobin a1c has been less than 7,hemoglobin a1c goal is less than 7, andbp usually runs 135-140/85-90, goal is __. For associated symptoms, patient reportsweight gain (___ lbs)andincreased urination. For duration, patient reportschronic. For compliance, patient reportsno side effects from medications. For self care, patient reportsseeing eye doctor regularlyandchecking feet regularly. ThyroidReported by PatientHPIFor context, patient reportshistory of hypothyroidism. For exercise, patient reportsno exercise. For associated symptoms, patient reportsweight gain (___ lbs). For quality, patient reportsimproving. For severity, patient reportsmild. For duration, patient reportsconstant. For onset/timing, patient reportsbetter. For modifying factors, patient reportsmedication. Lower Urinary Tract Symptoms (LUTS)Reported by PatientHPIFor associated symptoms, patient reportsabdominal pain. For location, patient reportsbladder. For quality, patient reportstenderandimproving. For severity, patient reportsmild. For onset/timing, patient reports< 1 week. For duration, patient reports4-10 times a day. For context, patient reportsdenies new medication treatment. Reflux/GERDReported by PatientHPIFor aggravating factors, patient reportslying downandworsened by food. For associated symptoms, patient reportsheartburnbut reportsno frequent coughing,no feeling of fullness/mass in throat,no hoarseness,no food getting stuck,no nausea, andno vomiting. For symptoms, patient reportsno difficulty swallowing,no pain swallowing, andno postprandial pain. For severity, patient reportsimproving. For duration, patient reportspresent 5 or more years. For onset/timing, patient reportsoccasional. For context, patient reportsnon-smoker,no drug/alcohol abuse, andno drug alcohol withdrawal. For alleviating factors, patient reportsmedicationandprotein pump inhibitors. KAT Atwood Attn: Accounting,[address] [place], [address], [facility] 08/26/2023 00:07:18 03/01/20 24 text/htm l HypertensionReported by PatientHPIFor onset/timing, patient reportsworse. For aggravating factors, patient reportsworse with activityandweight change. For severity, patient reportsmild. For duration, patient reportshas noted for years. For alleviating factors, patient reportsmedication. For associated symptoms, patient reportsno shortness of breath,no fatigue,no palpitations,no decline in exercise capacity, andno snoring. DiabetesReported by PatientHPIFor control, patient reportsworsened since last visitbut reportstreated with diet and oral medications,hemoglobin a1c has been less than 7,hemoglobin a1c goal is less than 7, andbp usually runs 135-140/85-90, goal is __. For associated symptoms, patient reportsweight gain (___ lbs)andincreased urination. For duration, patient reportschronic. For compliance, patient reportsno side effects from medications. For self care, patient reportsseeing eye doctor regularlyandchecking feet regularly. ThyroidReported by PatientHPIFor context, patient reportshistory of hypothyroidism. For exercise, patient reportsno exercise. For associated symptoms, patient reportsweight gain (___ lbs). For quality, patient reportsimproving. For severity, patient reportsmild. For duration, patient reportsconstant. For onset/timing, patient reportsbetter. For modifying factors, patient reportsmedication. Lower Urinary Tract Symptoms (LUTS)Reported by PatientHPIFor associated symptoms, patient reportsabdominal pain. For location, patient reportsbladder. For quality, patient reportstenderandimproving. For severity, patient reportsmild. For onset/timing, patient reports< 1 week. For duration, patient reports4-10 times a day. For context, patient reportsdenies new medication treatment. Reflux/GERDReported by PatientHPIFor aggravating factors, patient reportslying downandworsened by food. For associated symptoms, patient reportsheartburnbut reportsno frequent coughing,no feeling of fullness/mass in throat,no hoarseness,no food getting stuck,no nausea, andno vomiting. For symptoms, patient reportsno difficulty swallowing,no pain swallowing, andno postprandial pain. For severity, patient reportsimproving. For duration, patient reportspresent 5 or more years. For onset/timing, patient reportsoccasional. For context, patient reportsnon-smoker,no drug/alcohol abuse, andno drug alcohol withdrawal. For alleviating factors, patient reportsmedicationandprotein pump inhibitors. KAT Atwood Attn: Accounting,[address] [place], [address], [facility] 03/07/2024 18:46:42 04/19/20 24 text/htm l HypertensionReported by PatientHPIFor onset/timing, patient reportsworse. For aggravating factors, patient reportsworse with activityandweight change. For severity, patient reportsmild. For duration, patient reportshas noted for years. For alleviating factors, patient reportsmedication. For associated symptoms, patient reportsno shortness of breath,no fatigue,no palpitations,no decline in exercise capacity, andno snoring. DiabetesReported by PatientHPIFor control, patient reportsworsened since last visitbut reportstreated with diet and oral medications,hemoglobin a1c has been less than 7,hemoglobin a1c goal is less than 7, andbp usually runs 135-140/85-90, goal is __. For associated symptoms, patient reportsweight gain (___ lbs)andincreased urination. For duration, patient reportschronic. For compliance, patient reportsno side effects from medications. For self care, patient reportsseeing eye doctor regularlyandchecking feet regularly. ThyroidReported by PatientHPIFor context, patient reportshistory of hypothyroidism. For exercise, patient reportsno exercise. For associated symptoms, patient reportsweight gain (___ lbs). For quality, patient reportsimproving. For severity, patient reportsmild. For duration, patient reportsconstant. For onset/timing, patient reportsbetter. For modifying factors, patient reportsmedication. Reflux/GERDReported by PatientHPIFor aggravating factors, patient reportslying downandworsened by food. For associated symptoms, patient reportsheartburnbut reportsno frequent coughing,no feeling of fullness/mass in throat,no hoarseness,no food getting stuck,no nausea, andno vomiting. For symptoms, patient reportsno difficulty swallowing,no pain swallowing, andno postprandial pain. For severity, patient reportsimproving. For duration, patient reportspresent 5 or more years. For onset/timing, patient reportsoccasional. For context, patient reportsnon-smoker,no drug/alcohol abuse, andno drug alcohol withdrawal. For alleviating factors, patient reportsmedicationandprotein pump inhibitors. KAT Atwood Attn: Accounting,[address] [place], [address], [place] [facility] 05/05/2024 15:49:04 10/19/19 25 text/htm l HypertensionReported by PatientHPIFor duration, patient reportshas noted for years. For onset/timing, patient reportsbetter. For alleviating factors, patient reportsmedication. For associated symptoms, patient reportsno shortness of breath,no fatigue,no palpitations,no decline in exercise capacity, andno snoring. DiabetesReported by PatientHPIFor self care, patient reportsnot taking aspirin daily. For duration, patient reportschronic. For control, patient reportsusually well controlledandtreated with diet and oral medications. For compliance, patient reportscompliant with medications,compliant with follow-up visits, andcompliant with diet. For associated symptoms, patient reportsno weight gain,no weight loss,no dizziness,no sweats,no headaches,no confusion,no increased thirst,no increased appetite,no increased urination,no blurred vision,no numbness of feet, andno calluses on feet. ThyroidReported by PatientHPIFor context, patient reportshistory of thyroid diseaseandhistory of hypothyroidism. For exercise, patient reportsno exercise. For quality, patient reportsnot changing. For duration, patient reportsconstant. For onset/timing, patient reportsstill present. For modifying factors, patient reportsmedication. For associated symptoms, patient reportsno cold intolerance,no heat intolerance,no weight loss,no weight gain,no double vision,no dry eyes,no hoarseness,no difficulty swallowing,no neck masses,no deepening of the voice,no fast heart rate,no increased blood pressure,no palpitations,no chest pain,no chest tightess or pressure,no constipation,no diarrhea,no vomiting,no decreased appetite,no loose stools,no irregular menstrual periods,no excessive sweating,no joint pain,no numbness,no tingling of the hands or feet,no dry skin,no tremor,no nervousness,no anxiety,no depression,no fatigue,no sleep difficulties,no skin changes, andno hair changes. Reflux/GERDReported by PatientHPIFor aggravating factors, patient reportsworsened by food. For symptoms, patient reportsasymptomatic,no difficulty swallowing,no pain swallowing, andno postprandial pain. For severity, patient reportssame. For duration, patient reportspresent 5 or more years. For onset/timing, patient reportsgone now. For context, patient reportsnon-smoker,no drug/alcohol abuse,no drug alcohol withdrawal, andnot related to food/drink. For alleviating factors, patient reportsmedication. For associated symptoms, patient reportsno frequent coughing,no feeling of fullness/mass in throat,no hoarseness,no food getting stuck,no belching/burping,no nausea,no vomiting,not vomiting blood,no regurgitation,no shortness of breath,no chest pain,no heartburn,no difficulty swallowing,no pain when swallowing,no bad taste,no decreased appetite,no weight loss,no black/tarry stools,no fatigue, andno throat pain. KAT Atwood Attn: Accounting,[address] [place], [address], [place] [facility] 11/04/2024 02:07:03 OBGyn Episode No OBEpisode recorded.
--- OUTSIDE RECORDS SUMMARY | 2025-04-12 19:50 | XMS_ITS | Clinical Summary ---
Author Organization [facility] Address [address] [place] [id number] Care Team Providers Care Director Food Safety Name Role Phone Marisabel Flores Primary Care Provider [phone] Allergies Active Allergy Reactions Criticality Noted Date Comments Iodine Hives 10/11/2020 Egg Protein-Containing Drug Products Anaphylaxis High 10/11/2020 Duck eggs Levofloxacin [...] 4:16 PM CDT Height 159.4 cm (5' 2.75) 10/11/2020 4:16 PM CD T Body Mass Index 56.25 10/11/2020 4:16 PM CDT Plan of Treatment Health Maintenance Due Date Last Done Comments Colorectal Cancer Screening Colonoscopy (10 Years) 1959 Hepatitis C 1977 DTaP, Tdap and Td Vaccines ( 1 - Tdap) 1978 Mammogram Screening 1999 Pneumococcal Vaccine: 50+ Ye ars (1 of 1 - PCV) 2009 Zoster Vaccines (1 of 2) 2009 Dexa Scan (General) 2024 COVID-19 Vaccine (1 - 2024-2 6 season) 2025 Influenza Adult (#1) 2025 RSV Immunization or 60+ Years (1 - 1-dose 75+ series) 2034 Hepatitis A Vaccines Aged Out No long er eligible based on patient's age to complete this topic Meningococcal B Vaccine Aged Out No l onger eligible based on patient's age to complete this topic Meningococcal Vaccine Aged Out No amanda sowmya eligible based on patient's age to complete this topic RSV Immunizations Under 20 Months Aged Out No longer eligible based on patient's age to complete this topic Insurance [employer] [facility] Care Teams Director Food Safety Relationship Specialty Start Date End Date Marisabel Flores PA PCP - General PHYSICIAN MEETING COORDINATOR 10/11/20
--- OUTSIDE RECORDS SUMMARY | 2025-04-12 19:50 | XMS_ITS | Data Portability ---
Author Organization [facility], Main Office Address [address] [place] [address] Assessment No assessment recorded. Plan of Treatment Reminders Order Date Submit Date Provider Last Modified By Organization Details Last Modified Time Details Appointments None recorded. Lab lipid panel, serum 2022 023 [email or web address] 4 [employer] [facility], [address], [place], [address], 3 14:58:53 CMP, serum or plasma 2022 023 JULIANNE [employer] [facility], [address], [place], [address], 3 14:58:38 CBC w/ auto diff 2022 023 [email or web address] 4 [employer] [facility], [address], [place], [address], 3 14:58:53 HbA1c (hemoglobi n A1c), blood 2022 023 [email or web address] 4 [employer] [facility], [address], [place], [address], 3 14:58:53 microalbum in/creatin ine, mass ratio, urine 2022 023 [email or web address] 4 [employer] [facility], [address], [place], [address], 3 14:58:53 urinalysis , complete 2022 023 [email or web address] 4 [employer] [facility], [address], [place], [address], 3 14:58:53 culture, urine - clean catch 2022 023 [email or web address] [employer] [facility], [address], [place], [address], 3 14:58:54 TSH + free T4, serum 2022 023 [email or web address] [employer] [facility], [address], [place], [address], 3 14:58:52 Referral None recorded. Procedures None recorded. Surgeries None recorded. Imaging MAMMO, screening, digital, bilateral 20[email or web address] [place] [address] (Mammography) , [address], [place], [address], 4 12:43:04 Medication Orders None recorded. Patient TargetsNo targets recorded. Patient InstructionsNo instructions recorded. Reason for Referral None Reported. Results Created Date Observation Date Name Description Value Unit Range Abnormal Flag Note LastModifiedBy Organization Detail LastModifiedTime 05/05/20 22 03/26/2017 colon oscop y scree nataly (PROC ) No observ ation record ed. [email or web address] Not Available 2022 09:54:24 Result Notes None recorded. Problems Name Problem SNOMED Code Status Onset Date Resolution Date Notes Provider Name and Address Organization Details Recorded Time Benign essential hypertens ion 7882849 Active Not Available [facility] 3 15:19:13 Celluliti s 633457809 Active Not Available [facility] 3 15:19:13 Celluliti s and abscess of toe 432801695 Completed Not Available [facility] 3 15:19:13 Biceps tendiniti s 456572081 Completed Not Available [facility] 3 15:19:13 Morbid obesity 459542173 Active Not Available [facility] 3 15:19:13 Strain of neck muscle 384578845 Completed Not Available [facility] 3 15:19:14 Sinusitis 39241004 Active Not Available [facility] 3 15:19:14 Hypothyro idism 16688412 Active Not Available [facility] 3 15:19:14 Disorder due to type 2 diabetes mellitus 814068668 Completed Not Available [facility] 3 15:19:14 Urinary tract infectiou s disease 44396744 Completed Not Available [facility] 3 15:19:15 Diabetes mellitus 47584305 Active Not Available [facility] 3 15:19:15 History of anaphylax is 17811536546 474691 Completed 200403/31/2021 Not Available [facility] 3 15:19:12 Obstructi ve sleep apnea syndrome 35348511 Active 2018 Not Available [facility] 3 15:19:15 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 371121760 Active 2020 Not Available [facility] 3 15:19:13 Full thickness rotator cuff tear 811352514 Active 2020 Not Available [facility] 3 15:19:13 Complete repair of rotator cuff Completed 202001/09/2021 Not Available [facility] 3 15:19:14 Long-term drug therapy Active 2021 Not Available [facility] 3 15:19:14 Acute urinary tract infection 754212731 Active 2021 Not Available [facility] 3 15:19:14 Recurrent urinary tract infection 458175524 Active 2021 Not Available [facility] 3 15:19:13 Well controlle d type 2 diabetes mellitus 543086075 Active 2021 Not Available [facility] 3 15:19:15 Peptic ulcer 08097046 Active 2021 Not Available [facility] 3 15:19:13 Iron deficienc y anemia 16043325 Active 2021 Not Available [facility] 3 15:19:15 Chronic urinary tract infection 881385217 Active 2022 KAT Atwood [address], [address], [place], [address] , [employer] [facility] 3 09:53:39 Pain of ear 398133387 Active 2022 KAT Atwood [address] [facility], [address], [place], [address] , [employer] [facility] 3 13:08:14 Uncontrol led type 2 diabetes mellitus 854214017 Active 2022 KAT Atwood [address] [facility], [address], [place], [address] , [employer] [facility] 3 11:36:23 Problem Notes None recorded. Procedures Surgical History Date Name Laterality Status Provider Name and Address Organization Details Recorded Time 12/26/19 21 complete repair of rotator cuff completed Not Available [facility] 08/05/2022 15:15:10 breast procedure completed Not Available [facility] 08/05/2022 15:15:10 [employer] Procedure completed Not Available [facility] 08/05/2022 15:15:10 Removal of ovarian cyst(s) completed Not Available [facility] 08/05/2022 15:15:10 Hysterectomy completed Not Available [facility] 08/05/2022 15:15:10 Orthopedic Procedure completed Not Available [facility] 08/05/2022 15:15:10 Imaging Results None recorded. Procedure Notes None recorded. Medical Equipment None Reported. Allergies Allergen ID Allergen Name Allergen Category Reaction Reaction Severity Criticality Documentation Date Start Date Code Code System Note Provider Name and Address Organization Details Recorded Time 60383 Product containin g penicilli n (product) medicatio n Not available Not available Not available 08/05/2022 94269 8001 SNOMED Not Available [facility] 3 15:24:38 48968 lisinopri l medicatio n hives Not available Not available 08/05/2022 48497 RxNorm Not Available [facility] 3 15:24:38 89700 Levaquin medicatio n Not available Not available Not available 08/05/2022 46136 2 RxNorm Not Available [facility] 3 15:24:38 35888 Iodinated contrast media (substanc e) medicatio n anaphylax is severe Not available 08/05/2022 63055 2004 SNOMED Not Available [facility] 3 15:24:38 23577 egg extract food,medi cation anaphylax is severe Not available 08/05/2022 33151 15 RxNorm Duck Egg anaph ylaxi s Not Available [facility] 3 15:24:38 06599 Betadine medicatio n Not available Not available Not available 08/05/2022 96180 0 RxNorm Not Available [facility] 3 15:24:38 23279 adhesive tape environme nt,medica tion Not available Not available Not available 08/05/2022 Not Available [facility] 3 15:24:38 Medications Name Sig Start Date Stop Date Status Note LastModified by Organization Details LastModified Time metformin 500 mg tablet TAKE 2 TABLETS BY MOUTH TWICE DAILY active Not Available Not Available No t Available carvedilol 6.25 mg tablet Take 1 tablet twice a day by oral route. 2022 active Not Available Not Available Not Avai lable prednisone 10 mg tablet Take by oral route. active Not Available Not Available No t Available nitrofurant oin macrocrysta l 50 mg capsule TAKE 1 CAPSULE BY MOUTH AT BEDTIME 10/26 completed Not Available Not Available Not Available doxycycline hyclate 100 mg capsule active Not Available Not Available N ot Available clindamycin HCl 300 mg capsule TAKE ONE CAPSULE BY MOUTH EVERY 8 HOURS 05/11 completed Not Available Not Available Not Available Iron (ferrous sulfate) 325 mg (65 mg iron) tablet Take 1 tablet every day by oral route. 2021 active Not Available Not Available Not Avai lable azithromyci n 250 mg tablet Take 2 TABLEts the first day then 1 daily after 05/10 completed Not Available Not Available Not Available hydrocodone 5 mg-acetamin ophen 325 mg tablet 10/31 completed Not Available Not Available Not Available lisinopril 20 mg tablet Take 1 tablet every day by oral route. active Not Available Not Available No t Available prednisone 20 mg tablet TAKE 1 TABLET BY MOUTH EVERY DAY FOR 5 DAYS 10/31 completed Not Available Not Available Not Available Flonase 50 mcg/actuati on nasal spray,suspe nsion Inhale 2 sprays every day by intranasa l route in the evening. 10/31 completed Not Available Not Available Not Available metronidazo le 500 mg tablet Take 1 tablet every 8 hours by oral route. active Not Available Not Available No t Available acetaminoph en 300 mg-codeine 30 mg tablet TAKE 1 TABLET FOUR TIMES DAILY NEEDED FOR PAIN. 05/11 completed Not Available Not Available Not Available ciprofloxac in 500 mg tablet 06/22 completed Not Available Not Available Not Available sulfamethox azole 800 mg-trimetho prim 160 mg tablet TAKE 1 TABLET BY MOUTH TWICE DAILY 10/26 completed Not Available Not Available Not Available hydrocodone 10 mg-acetamin ophen 325 mg tablet Take 1 tablet every 6-8 hours by oral route. 03/13 completed Not Available Not Available Not Available omeprazole 40 mg capsule,del ayed release TAKE 1 CAPSULE BY MOUTH EVERY DAY active Not Available Not Available No t Available glimepiride 1 mg tablet TAKE 1 TABLET BY MOUTH EVERY DAY active Not Available Not Available No t Available Aleve 220 mg tablet Take 1 tablet every 12 hours by oral route. 2014 active Not Available Not Available Not Avai lable estradiol 1 mg tablet TAKE 1 TABLET BY MOUTH TWICE DAILY active Not Available Not Available No t Available OneTouch Ultra Test strips Take 1 strip twice a day by miscell. route. 10/31 completed Not Available Not Available Not Available meclizine 25 mg tablet TAKE 1 TABLET BY MOUTH THREE TIMES DAILY NEEDED 10/31 completed Not Available Not Available Not Available benzonatate 100 mg capsule Take 1 capsule 3 times a day by oral route. active Not Available Not Available No t Available triamcinolo ne acetonide 40 mg/mL suspension for injection Take 1 mL by injection route. 04/24 completed Not Available Not Available Not Available levothyroxi ne 50 mcg tablet TAKE 1 TABLET BY MOUTH EVERY DAY IN THE MORNING active Not Available Not Available No t Available metformin 1,000 mg tablet TAKE 1 TABLET BY MOUTH TWICE DAILY active Not Available Not Available No t Available diclofenac sodium 75 mg tablet,alex yed release 10/31 completed Not Available Not Available Not Available lisinopril 5 mg tablet TAKE 1 TABLET BY MOUTH DAILY 11/05 completed Not Available Not Available Not Available diclofenac sodium 50 mg tablet,alex yed release TK 1 T PO BID 07/18 completed Not Available Not Available Not Available epinephrine 0.3 mg/0.3 mL injection, auto-inject or ADMINISTE R 0.3 ML IN THE MUSCLE 1 TIME NEEDED 2022 active Not Available Not Available Not Avai lable Pepcid 20 mg tablet Take 1 tablet twice a day by oral route. 10/13 completed Not Available Not Available Not Available methylpredn isolone 4 mg tablets in a dose pack active Not Available Not Available Not Available albuterol sulfate HFA 90 mcg/actuati on aerosol inhaler INHALE 1 TO 2 PUFFS BY MOUTH UP TO FOUR TIMES DAILY NEEDED FOR WHEEZING active Not Available Not Available No t Available Cipro 250 mg tablet Take 1 tablet every 12 hours by oral route. 04/02 completed Not Available Not Available Not Available lisinopril 2.5 mg tablet TK 1 T PO QD 10/15 completed Not Available Not Available Not Available cyclobenzap rine 5 mg tablet TAKE 1 TABLET BY MOUTH THREE TIMES DAILY active Not Available Not Available No t Available metoprolol tartrate 25 mg tablet TK 1 T PO IN THE HANNAH 10/31 completed Not Available Not Available Not Available nitrofurant oin monohydrate /macrocryst als 100 mg capsule TAKE 1 CAPSULE BY MOUTH TWICE DAILY 10/27 completed Not Available Not Available Not Available aspirin 12/10 completed Not Available Not Available Not Available Aleve 2 tabs bid 04/02 completed Not Available Not Available Not Available omeprazole 04/02 completed Not Available Not Available Not Available Suprep Bowel Prep Kit 17.5 gram-3.13 gram-1.6 gram oral solution 10/31 completed Not Available Not Available Not Available Vitals Date Recorded Systolic And Diastolic Provider Name and Address Organization Details Last Updated DateTime 10/27/2022 150/80 mm[Hg] KAT Atwood [address] [facility], [facility] [address], [place], [address], [facility] [employer] [facility] 10/27/2022 09:50:55 Date Recorded Body height Body temperature Body mass index (BMI) Body weight Respiratory rate Oxygen saturation Oxygen saturation in Arterial blood by Pulse oximetry Heart rate Systolic And Diastolic Provider Name and Address Organization Details Last Updated DateTime 3 158.75 cm 97.2 [degF] 55.7 kg/m2 216826. 84 g 16 /min 96 % 96 % 118 /min 142/82 mm[Hg] KOSTA Velásquez [facility] [employer] [facility] 3 09:30:28 Date Recorded Body mass index (BMI) Body height Body weight Provider Name and Address Organization Details Last Updated DateTime 11/24/2021 54 kg/m2 158.75 cm 230232.71 g Not Available [facility] 08/05/2022 15:16:21 Date Recorded Body mass index (BMI) Body height Body weight Provider Name and Address Organization Details Last Updated DateTime 04/02/2022 55.1 kg/m2 158.75 cm 304028.27 g Not Available [facility] 08/05/2022 15:16:21 Date Recorded Body mass index (BMI) Body height Oxygen saturation Oxygen saturation in Arterial blood by Pulse oximetry Heart rate Respiratory rate Body temperature Body weight Systolic And Diastolic Systolic And Diastolic Provider Name and Address Organization Details Last Updated DateTime 2 53.1 kg/m2 158.75 cm 96 % 96 % 93 /min 16 /min 98 [degF] 226219. 75 g 150/90 mm[Hg] 130/80 mm[Hg] Not Available [facility] 15:16:12 Date Recorded Body height Body temperature Body mass index (BMI) Body weight Respiratory rate Oxygen saturation Oxygen saturation in Arterial blood by Pulse oximetry Heart rate Systolic And Diastolic Provider Name and Address Organization Details Last Updated DateTime 3 158.75 cm 97.1 [degF] 56.6 kg/m2 135755. 8 g 16 /min 95 % 95 % 112 /min 160/82 mm[Hg] KOSTA Velásquez [facility] 3 09:19:20 Social History Question Answer Notes LastModified by Organizat ion Details LastModified Time Tobacco Smoking Status Never Smoker Not Available [facility] 08/05/2022 15:14:48 In The 14 Days Before Symptom Onset, Have You Had Close Contact With A Laboratory-confirm ed COVID-19 While That Case Was Ill? No [id number] Information not available 08/05/2022 In The 14 Days Before Symptom Onset, Have You Had Close Contact With A Person Who Is Under Investigation For COVID-19 While That Person Was Ill? No [id number] Information not available 08/05/2022 What Type Of Diet Are You Following? REGULAR [email or web address] Information n ot available 10/26/2022 Have There Been Any Changes To Your Family Or Social Situation? No [id number] Information not available 08/05/2022 Do You Use Insect Repellent Routinely? No [id number] Information not available 08/05/2022 What Was The Date Of Your Most Recent Tobacco Screening? 04/02/2022 [id number] Information not available 08/05/2022 Do You Use Your Seat Belt Or Car Seat Routinely? Yes [id number] Information not available 08/05/2022 Do You Have Smoke And Carbon Monoxide Detectors In Your Home? Yes [id number] Information not available 08/05/2022 How Much Tobacco Do You Smoke? No [id number] Information not available 08/05/2022 Do You Use Sunscreen Routinely? Yes [id number] Information not available 08/05/2022 Have You Recently Traveled Abroad? No [id number] [id number] Information not available 08/05/2022 Do You Have Any Dietary Restrictions? No [id number] 026 Information not available 08/05/2022 Sex: Unknown Functional Status Question Answer Note LastModified by Organizat ion Details LastModified Time Do you use any illicit or recreational drugs? No [id number] Information not available 08/05/2022 Are you currently employed? 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 None [email or web address] Information not available 10/26/2022 Mental Status None recorded. Family History Relationship Description Onset Age of this Age Resolved Age Notes LastModified by Organization Details LastModified Time Father Cerebrovascu lar accident [id number] Not available 08/05/2022 15:15:10 Father Malignant neoplasm of lung [id number] Not available 08/05/2022 15:15:10 Mother Renal failure syndrome [id number] Not available 08/05/2022 15:15:10 Medical History Condition Response BLINDNESS N MRSA N SOFT TISSUE INJURY N INFECTIOUS DISEASE N HEART ARRHYTHMIA N LUNG DISEASE/DISORDER N INSOMNIA N HISTORY OF DRUG ABUSE N RADIATION / CHEMOTHERAPY N COPD N HIGH CHOLESTEROL / HYPERLIPIDEMIA N ANKLE PAIN N SPORTS INJURY N BLOOD DISEASES N EDEMA N CHRONIC PAIN SYNDROME N DEPRESSION (INCLUDING POST ) N SHOULDER PAIN N BACK / NECK PROBLEMS N HAVE YOU BEEN HOSPITALIZED OR SEEN IN [facility] ER IN THE PAST YEAR ? N STROKE/TIA N ULCERS N KNEE PAIN N BENIGN PROSTATIC HYPERPLASIA N OBESITY N GERD/NAUSEA N ANEURYSM N OSTEOPOROSIS N URINARY/BLADDER/KIDNEY PROBLEMS N CORONARY ARTERY DISEASE (CAD) N ADDICTION CONCERNS N ARTHRITIS N USE OF BLOOD THINNERS N NO SIGNIFICANT PAST MEDICAL HISTORY N SKIN PROBLEMS N DIABETES, TYPE Y BLOOD CLOTS N HEPATITIS / LIVER DISEASE N USE OF NSAIDS N CONCUSSION OR SPINAL TRAUMA N GOUT N ALZHEIMER'S DISEASE N HERPES N HEADACHES/MIGRAINES N SEIZURES/EPILEPSY N VASCULAR DISEASE N HIP PAIN Y Blood Disorder N DIZZINESS N HEART DISEASE/HEART PROBLEMS N AIDS/HIV N FRACTURES N ELBOW PAIN N HYPERTENSION N CARDIAC ARRHYTHMIA N CANCER: SPECIFY N TOURETTE'S N Metal allergy N BLOOD TRANSFUSION N ANESTHESIA COMPLICATIONS N ANEMIA/BLOOD DISORDER N ATRIAL FIBRILLATION N AUTOIMMUNE DISEASE N TUBERCULOSIS N FOOT PROBLEM N Gynecological HistoryNo gynecological history recorded. Obstetrics History GPAL:G 0 P 0 0 0 0 Past Encounters Encounter ID Performer Location Encounter Start Date Encounter Closed Date Diagnosis/Indication Diagnosis SNOMED-CT Code Diagnosis ICD10 Code Diagnosis IMO Codes Diagnosis Note [id number] KAT Atwood [facility] [address] [place] [address] 10/03/2020 00:00:00 10/03/2020 17:41:38 [id number] KAT Atwood [facility] [address] [place] [address] 10/15/2020 00:00:00 11/01/2020 19:18:34 [id number] _ATHN_MIGR ATION_1 _ATHENA_M IGRATION_ DEFAULT_1 _1 , 10/31/2020 00:00:00 10/31/2020 18:59:48 [id number] _ATHN_MIGR ATION_1 _ATHENA_M IGRATION_ DEFAULT_1 _1 , 11/28/2020 00:00:00 11/28/2020 20:23:27 [id number] _ATHN_MIGR ATION_1 _ATHENA_M IGRATION_ DEFAULT_1 _1 , 12/10/2020 00:00:00 12/10/2020 15:22:23 [id number] _ATHN_MIGR ATION_1 _ATHENA_M IGRATION_ DEFAULT_1 _1 , 01/09/2021 00:00:00 01/09/2021 16:25:23 [id number] _ATHN_MIGR ATION_1 _ATHENA_M IGRATION_ DEFAULT_1 _1 , 01/27/2021 00:00:00 01/27/2021 17:32:08 [id number] _ATHN_MIGR ATION_1 _ATHENA_M IGRATION_ DEFAULT_1 _1 , 02/04/2021 00:00:00 02/04/2021 16:50:26 [id number] _ATHN_MIGR ATION_1 _ATHENA_M IGRATION_ DEFAULT_1 _1 , 02/27/2021 00:00:00 02/27/2021 20:26:16 [id number] _ATHN_MIGR ATION_1 _ATHENA_M IGRATION_ DEFAULT_1 _1 , 03/13/2021 00:00:00 03/13/2021 16:33:51 [id number] KAT Atwood [facility] [address] [place] [address] 03/31/2021 00:00:00 2021 22:50:33 [id number] _ATHN_MIGR ATION_1 _ATHENA_M IGRATION_ DEFAULT_1 _1 , 04/17/2021 00:00:00 04/17/2021 15:07:57 [id number] _ATHN_MIGR ATION_1 _ATHENA_M IGRATION_ DEFAULT_1 _1 , 05/22/2021 00:00:00 05/22/2021 20:08:55 [id number] _ATHN_MIGR ATION_1 _ATHENA_M IGRATION_ DEFAULT_1 _1 , 08/18/2021 00:00:00 08/18/2021 18:25:31 [id number] _ATHN_MIGR ATION_1 _ATHENA_M IGRATION_ DEFAULT_1 _1 , 09/15/2021 00:00:00 09/15/2021 15:46:03 [id number] Claus Collins MD [facility] [address] [place] [address] 10/10/2021 00:00:00 11/04/2021 21:44:10 [id number] _ATHN_MIGR ATION_1 _ATHENA_M IGRATION_ DEFAULT_1 _1 , 10/13/2021 00:00:00 10/13/2021 18:06:32 [id number] _ATHN_MIGR ATION_1 _ATHENA_M IGRATION_ DEFAULT_1 _1 , 11/24/2021 00:00:00 11/24/2021 14:58:44 [id number] _ATHN_MIGR ATION_1 _ATHENA_M IGRATION_ DEFAULT_1 _1 , 04/02/2022 00:00:00 04/02/2022 16:44:48 [id number] KAT Atwood [facility] [address] [place] [address] 04/13/2022 00:00:00 05/06/2022 20:18:39 [id number] _ATHN_MIGR ATION_1 _ATHENA_M IGRATION_ DEFAULT_1 _1 , 07/18/2021 00:00:00 07/19/2021 15:38:11 [id number] KAT Atwood [facility] [address] [place] [address] 10/27/2022 09:23:26 10/27/2022 10:01:33 Screening mammography 77187880 Z12.31 mammogram is due Chronic ur inary tract infection 836234392 N39.0 screening urine with cx with hx of frequent UTIs Benign ess ential hypertension 5765353 I10 BP is borderline and patient does not want to start medication , as she says her pressure is running normal at home. she should continue to monitor Hypothyroidism 01327395 E03.9 on supplement and due for TFTs Well contr olled type 2 diabetes mellitus 333432721 E11.9 due for a1c and annual microalbum in Obstructiv e sleep apnea syndrome 59191814 G47.33 stable. Long-term drug therapy 197343620 Z79.899 CMP and CBC due. Cholesterol screening 27 0508810 Z13.220 fasting lipids due. [id number] KAT Atwood [facility] [address] [place] [address] 05/11/2023 09:09:53 05/11/2023 09:54:56 Adult health examination 980597544 Z00.01 well exam completed Benign ess ential hypertension 0984403 I10 elevated today. pt needs to dose coreg which she has not been. Hypothyroidism 78447026 E03.9 labs stable on supplement . levothyrox ine 50mcg daily. Obstructiv e sleep apnea syndrome 69469146 G47.33 stable. Long-term drug therapy 711954584 Z79.899 labs reviewed Uncontroll ed type 2 diabetes mellitus 405390378 E11.65 7.7% a1c. take medication as directed. lower carbs and sugars. Diet has been off-track. Health Concerns Section Related Observation LastModified by Organization Detai ls LastModified Time None Recorded Concern Status LastModified by Organization Details LastModified Time None Recorded Advance Directives Directive None Recorded Payers Insurance Date Sequence Insurance Name Policy Number Policy Mir Covered Member ID Mir Member ID Guarantor Name 01/05/2024 [facility] Mona Carcamo SELF SELF Mona Carcamo 01/05/2024 1 [place] 106 Mona Urbinan [id number] Mona Dona 10/26/2022 1 [place] [id number] Mona Clark Dona [id number] Mona Dona 08/05/2022 [employer] Aishwarya Carcamo Notes Date Note Type Note Provider Name and Address Organization Details Recorded Time 3 text/html HypertensionReported by PatientHPIFor associated symptoms, patient reportsfatiguebut reportsno shortness of breath,no palpitations,no decline in exercise capacity, andno snoring. For duration, patient reportshas noted for years. For onset/timing, patient reportsbetter. For alleviating factors, patient reportsmedication. DiabetesReported by PatientHPIFor compliance, patient reportshas not had dietitian visit in last year,does not wear a medic alert bracelet or necklace, anddoes not keep rapid-acting carbohydrate in carbut reportscompliant with medications,compliant with follow-up visits,compliant with diet,compliant with home glucose monitoring, andhad eye doctor visit in last year. For context, patient reportsnot taking aspirin dailybut reportsnormal range of home blood sugars (in the low 100s),seeing eye doctor regularly, andchecking feet regularly. For duration, patient reportschronic. For control, patient reportsusually well controlledandtreated with diet and oral medications. For self care, patient reportsmonitoring glucose daily. For associated symptoms, patient reportsno weight gain,no weight loss,no dizziness,no sweats,no headaches,no confusion,no increased thirst,no increased appetite,no increased urination,no blurred vision,no numbness of feet,no calluses on feet,no coronary artery disease,no kidney disease,no peripheral vascular disease,no diabetic retinopathy, andno diabetic neuropathy. HypothyroidismReported by PatientHPIFor context/risk, patient reportshistory of hypothyroidismandfemale genderbut reportsnormal thyroid levels,no history of head or neck radiation during childhood,no history of thyroid disease,no history of hyperthyroidism, andno excess iron exposure. For exercise, patient reportsno exercise. For duration, patient reportsconstant. For onset/timing, patient [...] sleep difficulties,no skin changes, andno hair changes. KAT Atwood [address], [place], [address], [facility] 11/02/2022 09:53:14 3 text/html HypertensionReported by PatientHPIFor duration, patient reportshas noted for years. For onset/timing, patient reportsbetter. For alleviating factors, patient reportsmedication. For associated symptoms, patient reportsno shortness of breath,no fatigue,no palpitations,no decline in exercise capacity, andno snoring. DiabetesReported by PatientHPIFor compliance, patient reportshas not had dietitian visit in last year,does not wear a medic alert bracelet or necklace, anddoes not keep rapid-acting carbohydrate in carbut reportscompliant with medications,compliant with follow-up visits,compliant with diet,compliant with home glucose monitoring, andhad eye doctor visit in last year. For context, patient reportsnot taking aspirin dailybut reportsnormal range of home blood sugars (in the low 100s),seeing eye doctor regularly, andchecking feet regularly. For duration, patient reportschronic. For control, patient reportsusually well controlled. For self care, patient reportsmonitoring glucose weekly. For associated symptoms, patient reportsno weight gain,no weight loss,no dizziness,no sweats,no headaches,no confusion,no increased thirst,no increased appetite,no increased urination,no blurred vision,no numbness of feet,no calluses on feet,no coronary artery disease,no kidney disease,no peripheral vascular disease,no diabetic retinopathy, andno diabetic neuropathy. HypothyroidismReported by PatientHPIFor context/risk, patient reportshistory of hypothyroidismandfemale genderbut reportsnormal thyroid levels,no history of head or neck radiation during childhood,no history of thyroid disease,no history of hyperthyroidism, andno excess iron exposure. For exercise, patient reportsno exercise. For quality, [...] sleep difficulties,no skin changes, andno hair changes. Wellness KAT Atwood [address] [address], [place], [address], [facility] 06/02/2023 11:37:21 OBGyn Episode No OBEpisode recorded.
== END 2025-04-12 12:59 | disposition home or self-care (01) ==
LOC: ANHFOHIMG 13:00
PROVIDERS: PCP Physician Assistant; Visit Provider Obstetrics & Gynecology
DX: R92.8 Other abnormal and inconclusive findings on diagnostic imaging of breast (principal)
CPT/HCPCS: 77061; 77065; G0279